=== PATIENT | female | born 1990 | race Caucasian/White ===

== ENCOUNTER 2019-01-02 17:12 | Emergency (ER) | payer OTHER, MEDICAID, SELFPAY ==
[2019-01-02 17:18] VITALS: BP 128/89; PULSE 78; RESP 12; TEMP 36.8; O2SAT 95; BMI 16.9
[2019-01-02 18:07] LABS: Alanine Aminotransferase 15 IU/L (9-52); Albumin 4.4 g/dL (3.5-5.0); Albumin Globulin Ratio 1.6 (1.0-2.8); Alkaline Phosphatase 59 U/L (38-126); Aspartate Aminotransferase 22 IU/L (14-36); BUN Creatinine Ratio 14.3 (6-22); Bilirubin Total 0.2 mg/dL (0.2-1.3); Blood Urea Nitrogen 10 mg/dL (7-17); Calcium 9.5 mg/dL (8.4-10.2); Carbon Dioxide 26 mmol/L (22-32); Chloride 105 mmol/L (98-107); Estimated Glomerular Filt Rate > 60.0 mL/min (>60); Globulin 2.8 g/dL (1.7-4.1); Glucose 95 mg/dL (70-100); HEMOLYSIS < 15 (0-50); Magnesium 2.2 mg/dL (1.6-2.3); Potassium 3.8 mmol/L (3.4-5.1); Sodium 140 mmol/L (137-145); Total Protein 7.2 g/dL (6.3-8.2)
[2019-01-02 18:36] LABS: Thyroid Stimulating Hormone 1.45 uIU/mL (0.47-4.68)
--- NOTE | 2019-01-02 19:12 | ED.ARRPALP ---
HPI - Arrhythmia/Palpitations General Chief Complaint: Arrhythmia/Palpitations Stated Complaint: hearts going fast,sweating,headache,lighthead Time Seen by Provider: 01/02/19 18:16 Source: patient Mode of arrival: ambulatory Limitations: no limitations History of Present Illness HPI narrative: The patient has been experiencing palpitations since yesterday. She was having a pounding sensation in her chest. There was no associated weakness or dizziness. Symptoms persisted up to the time arrival today. After triage, while resting in her exam room, symptoms improved. She has a prior history of cardiac evaluation, she is unaware of a specific diagnosis. The prior evaluation resolved around similar symptoms. She does not recognize multiple arrhythmias. When seen previously she was advised to reduce her caffeine. She has significantly reduced her caffeine. She recently quit smoking but still vapes. She has no chronic medical problems. She is taking no cardiac associated medications. There is no family history of early cardiac disease. Related Data Home Medications Medication Instructions Recorded Confirmed buprenorphine-naloxone 1.5 film SUBLINGUAL DAILY 01/02/19 01/02/19 escitalopram oxalate 10 mg PO QPM 01/02/19 01/02/19 Allergies Allergy/AdvReac Type Severity Reaction Status Date / Time No Known Drug Allergies Allergy Verified 01/02/19 17:22 Review of Systems Review of Systems ROS Unobtainable: All systems reviewed & are unremarkable except as noted in HPI and below Constitutional Denies fever(s), Denies lethargy and Denies weakness Comments: No recent illness ENT Ears, Nose, Mouth, and Throat: Denies nasal congestion, Denies neck pain and Denies sore throat Cardiovascular Reports as per HPI, Denies diaphoresis, Denies syncope, Denies pedal edema and Denies dyspnea Respiratory Denies chest congestion, Denies cough and Denies dyspnea Gastrointestinal Gastrointestinal: Denies abdominal pain, Denies change in bowel habits, Denies diarrhea, Denies nausea and Denies vomiting Musculoskeletal Denies back pain and Denies neck pain Neurologic Denies syncope and Denies weakness [facility] Medical History (Updated 01/03/19 @ 01:31 by Inderjit Conner MD) Palpitation (Acute) Surgical History History of third molar tooth extraction History of third molar tooth extraction Social History Smoking Status: Current every day smoker Social History Smoking Status: Current every day smoker Exam Initial Vital Signs Initial Vital Signs: Vital Signs Temperature 98.2 F 01/02/19 17:18 Pulse Rate 78 01/02/19 17:18 Respiratory Rate 12 01/02/19 17:18 Blood Pressure 128/89 01/02/19 17:18 Pulse Oximetry 95 01/02/19 17:18 Const General: cooperative and well developed Nutritional Appearance: well nourished Orientation: alert, awake, oriented x3 and not confused HENMD Head: normal to inspection and normocephalic Mouth: oral mucosae normal Throat: posterior oropharynx normal Eyes General: appearance normal, both eyes and all related structures Eyelids: eyelids normal Conjunctivae: conjunctivae normal Sclera: sclerae normal Pupils: PERRL EOM: EOM intact bilaterally Neck Neck: normal visual inspection, trachea midline, No lymphadenopathy, No midline deformity and No JVD Lymphatic: No lymphedema Chest Chest: normal inspection of the chest Resp Effort & Inspection: normal respiratory effort, able to speak in complete sentences, no respiratory distress and no use of accessory muscles Auscultation: clear to auscultation bilaterally, no rales, no rhonchi and no wheezes Cardio Rate: regular rate Rhythm: regular rhythm Heart Sounds: no click, no gallops, no murmurs and no rubs Pulses: normal peripheral pulses GI Inspection: non-distended Palpation: soft, no hepatosplenomegaly, No guarding, No pulsatile mass and No tender Auscultation: normal bowel sounds Skin General: no rashes or lesions noted, No jaundice and No petechiae Neuro General: alert, oriented x3, gait normal and no focal motor deficits Speech: speech normal Extrem General: full ROM, no clubbing, cyanosis or edema, no pedal edema and no calf tenderness Course Course Narrative: The patient has been asymptomatic since shortly after arrival. EKG was suggestive junctional rhythm, a repeat shows normal sinus rhythm. Monitor showed normal sinus rhythm. She was referred back to cardiology for additional evaluation. Orders Ordered: ED Orders 01/02/19 17:21 EKG-12 Lead Stat 01/02/19 17:35 Complete Blood Count AUTO DIFF Stat Comprehensive Metabolic Panel Stat Magnesium Stat Prothrombin Time INR Stat TSH [Thyroid Stimulating Hormone] Stat Troponin & CK Cardiac Panel Stat 01/02/19 19:27 EKG-12 Lead Stat Discontinued Medications Aspirin (Aspirin Chew) 324 mg PO NOW ONE Stop: 01/02/19 19:28 Last Admin: 01/02/19 19:51 Dose: 324 mg Vital Signs - 8 hr 01/02/19 20:09 01/02/19 21:00 Pulse Rate 66 62 Respiratory Rate 19 14 Blood Pressure [Left Arm] 104/77 121/76 Pulse Oximetry 100 98 MDM - Arrhythmia/Palpitations Lab Data Result diagrams: 01/02/19 17:35 01/02/19 17:35 Lab Results 01/02/19 01/02/19 01/02/19 Range/Units 17:35 17:35 17:35 WBC 8.2 (4.5-11.0) X10^3/uL RBC 4.11 (4.0-5.2) X10^6/uL Hgb 12.9 (12.0-16.0) g/dL Hct 39.0 (36-46) % MCV 94.7 (80-100) fL MCH 31.5 (26-34) PG MCHC 33.2 (30-36) % RDW 12.5 (11.6-14.8) % Plt Count 275 (150-400) X10^3/uL Neut % (Auto) 58.0 (50-75) % Lymph % (Auto) 35.6 (25-40) % Avery % (Auto) 5.0 (3-14) % Eos % (Auto) 1.0 L (2-4) % Baso % (Auto) 0.4 (0-2) % Neut # (Auto) 4700 (7542-3062) /uL Lymph # (Auto) 2900 (9816-0921) /uL Avery # (Auto) 400 (0-900) /uL Eos # (Auto) 100 (0-450) /uL Baso # (Auto) 0 (0-100) /uL PT (10.1-12.7) SECONDS INR (0.9-1.3) Sodium 140 (137-145) mmol/L Potassium 3.8 (3.4-5.1) mmol/L Chloride 105 (98-107) mmol/L Carbon Dioxide 26 (22-32) mmol/L BUN 10 (7-17) mg/dL Creatinine 0.70 (0.52-1.04) mg/dL Estimated GFR > 60.0 (>60) mL/min BUN/Creatinine Ratio 14.3 (6-22) Glucose 95 (70-100) mg/dL Calcium 9.5 (8.4-10.2) mg/dL Magnesium 2.2 (1.6-2.3) mg/dL Total Bilirubin 0.2 (0.2-1.3) mg/dL AST 22 (14-36) IU/L ALT 15 (9-52) IU/L Alkaline Phosphatase 59 (38-126) U/L Total Creatine Kinase (30-135) U/L CK-MB (CK-2) CK-MB (CK-2) Rel Index Troponin I (0.01-0.034) ng/mL Total Protein 7.2 (6.3-8.2) g/dL Albumin 4.4 (3.5-5.0) g/dL Globulin 2.8 (1.7-4.1) g/dL Albumin/Globulin Ratio 1.6 (1.0-2.8) TSH 1.45 (0.47-4.68) uIU/mL 01/02/19 01/02/19 Range/Units 17:35 17:35 WBC (4.5-11.0) X10^3/uL RBC (4.0-5.2) X10^6/uL Hgb (12.0-16.0) g/dL Hct (36-46) % MCV (80-100) fL MCH (26-34) PG MCHC (30-36) % RDW (11.6-14.8) % Plt Count (150-400) X10^3/uL Neut % (Auto) (50-75) % Lymph % (Auto) (25-40) % Avery % (Auto) (3-14) % Eos % (Auto) (2-4) % Baso % (Auto) (0-2) % Neut # (Auto) (9327-1656) /uL Lymph # (Auto) (9149-5610) /uL Avery # (Auto) (0-900) /uL Eos # (Auto) (0-450) /uL Baso # (Auto) (0-100) /uL PT 13.0 H (10.1-12.7) SECONDS INR 1.1 (0.9-1.3) Sodium (137-145) mmol/L Potassium (3.4-5.1) mmol/L Chloride (98-107) mmol/L Carbon Dioxide (22-32) mmol/L BUN (7-17) mg/dL Creatinine (0.52-1.04) mg/dL Estimated GFR (>60) mL/min BUN/Creatinine Ratio (6-22) Glucose (70-100) mg/dL Calcium (8.4-10.2) mg/dL Magnesium (1.6-2.3) mg/dL Total Bilirubin (0.2-1.3) mg/dL AST (14-36) IU/L ALT (9-52) IU/L Alkaline Phosphatase (38-126) U/L Total Creatine Kinase 87 (30-135) U/L CK-MB (CK-2) TNP CK-MB (CK-2) Rel Index TNP Troponin I < 0.012 (0.01-0.034) ng/mL Total Protein (6.3-8.2) g/dL Albumin (3.5-5.0) g/dL Globulin (1.7-4.1) g/dL Albumin/Globulin Ratio (1.0-2.8) TSH (0.47-4.68) uIU/mL ECG Data Attestation: I personally reviewed and interpreted this ECG as follows: (Junctional rhythm rate 71 beats per minute. Possible right ventricular conduction delay. No acute ST T wave changes. EKG 2. Colon normal sinus rhythm a 71 beats per minute. No acute ST T wave changes. No significant change from the 1st EKG. No ectopy.) Discharge Plan Departure Patient Disposition: Home Clinical Impression: Palpitations, Junctional rhythm Discharge Date/Time: 01/02/19 21:17 Interventions: ED Discharge Assessment Last Done: 01/02/19 21:16 Instructions: DI for Palpitations Activity Restrictions/Additional Instructions: Take baby aspirin, 1 daily. Follow-up with Cardiology, I will give you contact information for Dr. Hernandez here in [place]. Return to ER for persistent chest pain or difficulty breathing Prescriptions: No Action escitalopram oxalate 10 mg tablet 10 mg PO QPM RF: 0 buprenorphine-naloxone 8-2 mg film 1.5 film sublingual DAILY RF: 0 Referrals: Larisa Dozier PA-C [Primary Care Provider] - Blair Hernandez MD [Physician] -
--- NOTE | 2019-01-02 19:28 | ED_ITS ---
HPI - Arrhythmia/Palpitations General Chief Complaint: Arrhythmia/Palpitations Stated Complaint: hearts going fast,sweating,headache,lighthead Time Seen by Provider: 01/02/19 18:16 Source: patient Mode of arrival: ambulatory Limitations: no limitations History of Present Illness HPI narrative: The patient has been experiencing palpitations since yesterday. She was having a pounding sensation in her chest. There was no associated weakness or dizziness. Symptoms persisted up to the time arrival today. After triage, while resting in her exam room, symptoms improved. She has a prior history of cardiac evaluation, she is unaware of a specific diagnosis. The prior evaluation resolved around similar symptoms. She does not recognize multiple arrhythmias. When seen previously she was advised to reduce her c affeine. She has significantly reduced her caffeine. She recently quit smoking but still vapes. She has no chronic medical problems. She is taking no cardiac associated medications. There is no family history of early cardiac disease. Related Data Home Medications Medication Instructions Recorded Confirmed buprenorphine-naloxone 1.5 film SUBLINGUAL DAILY 01/02/19 01/02/19 escitalopram oxalate 10 mg PO QPM 01/02/19 01/02/19 Allergies Allergy/AdvReac Type Severity Reaction Status Date / Time No Known Drug Allergies Allergy Verified 01/02/19 17:22 Review of Systems Review of Systems ROS Unobtainable: All systems reviewed & are unremarkable except as noted in HPI and below Constitutional Denies fever(s), Denies lethargy and Denies weakness Comments: No recent illness ENT Ears, Nose, Mouth, and Throat: Denies nasal congestion, Denies neck pain and Denies sore throat Cardiovascular Reports as per HPI, Denies diaphoresis, Denies syncope, Denies pedal edema and Denies dyspnea Respiratory Denies chest congestion, Denies cough and Denies dyspnea Gastrointestinal Gastrointestinal: Denies abdominal pain, Denies change in bowel habits, Denies diarrhea, Denies nausea and Denies vomiting Musculoskeletal Denies back pain and Denies neck pain Neurologic Denies syncope and Denies weakness [facility] Medical History (Updated 01/03/19 @ 01:31 by Inderjit Conner MD) Palpitation (Acute) Surgical History History of third molar tooth extraction History of third molar tooth extraction Social History Smoking Status: Current every day smoker Social History Smoking Status: Current every day smoker Exam Initial Vital Signs Initial Vital Signs: Vital Signs Temperature 98.2 F 01/02/19 17:18 Pulse Rate 78 01/02/19 17:18 Respiratory Rate 12 01/02/19 17:18 Blood Pressure 128/89 01/02/19 17:18 Pulse Oximetry 95 01/02/19 17:18 Const General: cooperative and well developed Nutritional Appearance: well nourished Orientation: alert, awake, oriented x3 and not confused [facility] Head: normal to inspection and normocephalic Mouth: oral mucosae normal Throat: posterior oropharynx normal Eyes General: appearance normal, both eyes and all related structures Eyelids: eyelids normal Conjunctivae: conjunctivae normal Sclera: sclerae normal Pupils: PERRL EOM: EOM intact bilaterally Neck Neck: normal visual inspection, trachea midline, No lymphadenopathy, No midline deformity and No JVD Lymphatic: No lymphedema Chest Chest: normal inspection of the chest Resp Effort & Inspection: normal respiratory effort, able to speak in complete sentences, no respiratory distress and no use of accessory muscles Auscultation: clear to auscultation bilaterally, no rales, no rhonchi and no wheezes Cardio Rate: regular rate Rhythm: regular rhythm Heart Sounds: no click, no gallops, no murmurs and no rubs Pulses: normal peripheral pulses GI Inspection: non-distended Palpation: soft, no hepatosplenomegaly, No guarding, No pulsatile mass and No tender Auscultation: normal bowel sounds Skin General: no rashes or lesions noted, No jaundice and No petechiae Neuro General: alert, oriented x3, gait normal and no focal motor deficits Speech: speech normal Extrem General: full ROM, no clubbing, cyanosis or edema, no pedal edema and no calf tenderness Course Course Narrative: The patient has been asymptomatic since shortly after arrival. EKG was suggestive junctional rhythm, a repeat shows normal sinus rhythm. Monitor showed normal sinus rhythm. She was referred back to cardiology for a dditional evaluation. Orders Ordered: ED Orders 01/02/19 17:21 EKG-12 Lead Stat 01/02/19 17:35 Complete Blood Count AUTO DIFF Stat Comprehensive Metabolic Panel Stat Magnesium Stat Prothrombin Time INR Stat TSH [Thyroid Stimulating Hormone] Stat Troponin & CK Cardiac Panel Stat 01/02/19 19:27 EKG-12 Lead Stat Discontinued Medications Aspirin (Aspirin Chew) 324 mg PO NOW ONE Stop: 01/02/19 19:28 Last Admin: 01/02/19 19:51 Dose: 324 mg Vital Signs - 8 hr 01/02/19 20:09 01/02/19 21:00 Pulse Rate 66 62 Respiratory Rate 19 14 Blood Pressure [Left Arm] 104/77 121/76 Pulse Oximetry 100 98 MDM - Arrhythmia/Palpitations Lab Data Result diagrams: 01/02/19 17:35 01/02/19 17:35 Lab Results 01/02/19 01/02/19 01/02/19 Range/Units 17:35 17:35 17:35 WBC 8.2 (4.5-11.0) X10^3/uL RBC 4.11 (4.0-5.2) X10^6/uL Hgb 12.9 (12.0-16.0) g/dL Hct 39.0 (36-46) % MCV 94.7 (80-100) fL MCH 31.5 (26-34) PG MCHC 33.2 (30-36) % RDW 12.5 (11.6-14.8) % Plt Count 275 (150-400) X10^3/uL Neut % (Auto) 58.0 (50-75) % Lymph % (Auto) 35.6 (25-40) % Louisa % (Auto) 5.0 (3-14) % Eos % (Auto) 1.0 L (2-4) % Baso % (Auto) 0.4 (0-2) % Neut # (Auto) 4700 (9369-5647) /uL Lymph # (Auto) 2900 (0607-1498) /uL Louisa # (Auto) 400 (0-900) /uL Eos # (Auto) 100 (0-450) /uL Baso # (Auto) 0 (0-100) /uL PT (10.1-12.7) SECONDS INR (0.9-1.3) Sodium 140 (137-145) mmol/L Potassium 3.8 (3.4-5.1) mmol/L Chloride 105 (98-107) mmol/L Carbon Dioxide 26 (22-32) mmol/L BUN 10 (7-17) mg/dL Creatinine 0.70 (0.52-1.04) mg/dL Estimated GFR > 60.0 (>60) mL/min BUN/Creatinine Ratio 14.3 (6-22) Glucose 95 (70-100) mg/dL Calcium 9.5 (8.4-10.2) mg/dL Magnesium 2.2 (1.6-2.3) mg/dL Total Bilirubin 0.2 (0.2-1.3) mg/dL AST 22 (14-36) IU/L ALT 15 (9-52) IU/L Alkaline Phosphatase 59 (38-126) U/L Total Creatine Kinase (30-135) U/L CK-MB (CK-2) CK-MB (CK-2) Rel Index Troponin I (0.01-0.034) ng/mL Total Protein 7.2 (6.3-8.2) g/dL Albumin 4.4 (3.5-5.0) g/dL Globulin 2.8 (1.7-4.1) g/dL Albumin/Globulin Ratio 1.6 (1.0-2.8) TSH 1.45 (0.47-4.68) uIU/mL 01/02/19 01/02/19 Range/Units 17:35 17:35 WBC (4.5-11.0) X10^3/uL RBC (4.0-5.2) X10^6/uL Hgb (12.0-16.0) g/dL Hct (36-46) % MCV (80-100) fL MCH (26-34) PG MCHC (30-36) % RDW (11.6-14.8) % Plt Count (150-400) X10^3/uL Neut % (Auto) (50-75) % Lymph % (Auto) (25-40) % Louisa % (Auto) (3-14) % Eos % (Auto) (2-4) % Baso % (Auto) (0-2) % Neut # (Auto) (0293-5004) /uL Lymph # (Auto) (6651-7356) /uL Louisa # (Auto) (0-900) /uL Eos # (Auto) (0-450) /uL Baso # (Auto) (0-100) /uL PT 13.0 H (10.1-12.7) SECONDS INR 1.1 (0.9-1.3) Sodium (137-145) mmol/L Potassium (3.4-5.1) mmol/L Chloride (98-107) mmol/L Carbon Dioxide (22-32) mmol/L BUN (7-17) mg/dL Creatinine (0.52-1.04) mg/dL Estimated GFR (>60) mL/min BUN/Creatinine Ratio (6-22) Glucose (70-100) mg/dL Calcium (8.4-10.2) mg/dL Magnesium (1.6-2.3) mg/dL Total Bilirubin (0.2-1.3) mg/dL AST (14-36) IU/L ALT (9-52) IU/L Alkaline Phosphatase (38-126) U/L Total Creatine Kinase 87 (30-135) U/L CK-MB (CK-2) TNP CK-MB (CK-2) Rel Index TNP Troponin I < 0.012 (0.01-0.034) ng/mL Total Protein (6.3-8.2) g/dL Albumin (3.5-5.0) g/dL Globulin (1.7-4.1) g/dL Albumin/Globulin Ratio (1.0-2.8) TSH (0.47-4.68) uIU/mL ECG Data Attestation: I personally reviewed and interpreted this ECG as follows: (Junctional rhythm rate 71 beats per minute. Possible right ventricular conduction delay. No acute ST T wave changes. EKG 2. Colon normal sinus rhythm a 71 beats per minute. No acute ST T wave changes. No significant change from the 1st EKG. No ectopy.) Discharge Plan Departure Patient Disposition: Home Clinical Impression: Palpitations, Junctional rhythm Discharge Date/Time: 01/02/19 21:17 Interventions: ED Discharge Assessment Last Done: 01/02/19 21:16 Instructions: DI for Palpitations Activity Restrictions/Additional Instructions: Take baby aspirin, 1 daily. Follow-up with Cardiology, I will give you contact information for Dr. Hernandez here in [place]. Return to ER for persistent chest pain or difficulty breathing Prescriptions: No Action escitalopram oxalate 10 mg tablet 10 mg PO QPM RF: 0 buprenorphine-naloxone 8-2 mg film 1.5 film sublingual DAILY RF: 0 Referrals: Larisa Dozier PA-C [Primary Care Provider] - Blair Hernandez MD [Physician] -
[2019-01-02] MEDS: ASPIRIN 81 MG TAB 324 MG PO (19:51)
[2019-01-02 20:09] VITALS: BP 104/77; PULSE 66; RESP 19; O2SAT 100
[2019-01-02 20:37] LABS: Creatine Kinase 87 U/L (30-135)
[2019-01-02 20:49] LABS: Add Manual Diff / Slide Review NO; Basophils Absolute Auto 0 /uL (0-100); Basophils Percent Auto 0.4 % (0-2); Eosinophils Absolute Auto 100 /uL (0-450); Hemoglobin 12.9 g/dL (12.0-16.0); Lymphocytes Absolute Auto 2900 /uL (1100-4500); Lymphocytes Percent Auto 35.6 % (25-40); Mean Corpuscular HGB Conc 33.2 % (30-36); Mean Corpuscular Hemoglobin 31.5 PG (26-34); Mean Corpuscular Volume 94.7 fL (80-100); Monocytes Absolute Auto 400 /uL (0-900); Neutrophils Absolute Auto 4700 /uL (1500-7000); Platelet Count 275 X10^3/uL (150-400); Red Blood Cell Count 4.11 X10^6/uL (4.0-5.2); Red Cell Distribution Width 12.5 % (11.6-14.8); White Blood Cell Count 8.2 X10^3/uL (4.5-11.0)
[2019-01-02 20:50] LABS: INR 1.1 (0.9-1.3); Troponin I < 0.012 ng/mL (0.01-0.034)
[2019-01-02 21:00] VITALS: BP 121/76; PULSE 62; RESP 14; O2SAT 98
== END 2019-01-02 21:17 | disposition home or self-care (01) ==
PROVIDERS: Internal Medicine; Emergency Provider Emergency Medicine; PCP Physician Assistant
DX: R00.2 Palpitations (principal); I49.8 Other specified cardiac arrhythmias
CPT/HCPCS: 36591; 80053; 82550; 83735; 84443; 84484; 85025; 85610; 93005; 99282; 99284

== ENCOUNTER 2019-01-06 18:17 | Emergency (ER) | payer OTHER, MEDICAID, SELFPAY ==
[2019-01-06 18:18] VITALS: BP 108/65; PULSE 66; RESP 15; O2SAT 99; BMI 16.9
--- NOTE | 2019-01-06 18:30 | DI.RAD.S_ITS ---
PROCEDURE: XR CHEST 1V INDICATIONS: palpitations TECHNIQUE: One view of the chest was acquired. COMPARISON: [facility], , CHEST 2 VIEW, 08/30/2009, 8:11. FINDINGS: Surgical changes and devices: None. Lungs and pleura: Lungs are clear. No pleural effusions or pneumothorax. Mediastinum: Mediastinal contours appear normal. Heart size is normal. Bones and chest wall: No suspicious bony lesions. Overlying soft tissues appear unremarkable. IMPRESSION: No acute process. Dictated by: Bernard Zamora M.D. on 01/06/2019 at 18:44 Approved by: Bernard Zamora M.D. on 01/06/2019 at 18:44
[2019-01-06 18:44] LABS: Add Manual Diff / Slide Review NO; Basophils Absolute Auto 100 /uL (0-100); Basophils Percent Auto 0.8 % (0-2); Eosinophils Absolute Auto 300 /uL (0-450); Eosinophils Percent Auto 3.2 % (2-4); Hematocrit 35.5 % (36-46); Hemoglobin 12.1 g/dL (12.0-16.0); Lymphocytes Absolute Auto 2800 /uL (1100-4500); Lymphocytes Percent Auto 34.9 % (25-40); Mean Corpuscular Hemoglobin 31.9 PG (26-34); Mean Corpuscular Volume 93.9 fL (80-100); Monocytes Absolute Auto 500 /uL (0-900); Monocytes Percent Auto 6.8 % (3-14); Neutrophils Absolute Auto 4300 /uL (1500-7000); Neutrophils Percent Auto 54.3 % (50-75); Platelet Count 228 X10^3/uL (150-400); Red Blood Cell Count 3.78 X10^6/uL (4.0-5.2); Red Cell Distribution Width 12.6 % (11.6-14.8); White Blood Cell Count 7.9 X10^3/uL (4.5-11.0)
[2019-01-06 18:57] LABS: BUN Creatinine Ratio 28.3 (6-22); Blood Urea Nitrogen 17 mg/dL (7-17); Calcium 9.2 mg/dL (8.4-10.2); Carbon Dioxide 27 mmol/L (22-32); Chloride 106 mmol/L (98-107); Creatine Kinase 78 U/L (30-135); Estimated Glomerular Filt Rate > 60.0 mL/min (>60); Glucose 105 mg/dL (70-100); HEMOLYSIS < 15 (0-50); Magnesium 2.1 mg/dL (1.6-2.3); Sodium 140 mmol/L (137-145)
--- NOTE | 2019-01-06 18:57 | ED.ARRPALP ---
HPI - Arrhythmia/Palpitations General Chief Complaint: Arrhythmia/Palpitations Stated Complaint: HEART PALPITATIONS DIZZY Time Seen by Provider: 01/06/19 18:18 Source: patient and family Mode of arrival: ambulatory Limitations: no limitations History of Present Illness HPI narrative: 28-year-old female smoker presents with multiple episodes of palpitations over the past few days. She states occasionally the palpitations are strong enough to cause discomfort but that is not a primary symptom or concern. On occasion she feels dizzy and lightheaded but not currently. She is not currently having palpitations or really any symptoms. She did have a cardiac evaluation which was not complete a few years ago which she wore a monitor but never turned it never head interpreted. She denies any significant dietary or medication change. She denies any significant caffeine, nicotine or alcohol intake. She denies recent travel MD complaint: rapid heart beat, heart racing and palpitations Onset (ago): day(s) Duration: intermittent and now resolved Severity: moderate Context: occurred during rest Associated symptoms: chest pain Related Data Home Medications Medication Instructions Recorded Confirmed buprenorphine-naloxone 1.5 film SUBLINGUAL DAILY 01/02/19 01/06/19 escitalopram oxalate 10 mg PO QPM 01/02/19 01/06/19 Allergies Allergy/AdvReac Type Severity Reaction Status Date / Time No Known Drug Allergies Allergy Verified 01/02/19 17:22 Review of Systems Constitutional Denies chills, Denies fever(s), Denies lethargy and Denies weakness Eyes Denies change in vision, Denies eye discharge, Denies irritation and Denies loss of vision ENT Ears, Nose, Mouth, and Throat: Denies change in voice, Denies neck pain and Denies sore throat Cardiovascular Reports chest pain, Denies irregular heart rhythm, Denies lightheadedness, Reports palpitations, Denies dyspnea, Denies dyspnea on exertion and Denies orthopnea Respiratory Denies cough, Denies dyspnea, Denies dyspnea on exertion and Denies wheezing Gastrointestinal Gastrointestinal: Denies abdominal pain, Denies change in bowel habits, Denies diarrhea, Denies nausea and Denies vomiting Genitourinary Denies hematuria, Denies flank pain, Denies urinary incontinence and Denies urinary urgency Musculoskeletal Denies neck pain Integumentary/Breasts Denies pruritus, Denies erythema, Denies rash and Denies wounds Neurologic Denies confusion, Denies loss of vision and Denies weakness Psychiatric Denies anxiety, Denies confusion, Denies depression, Denies homicidal ideation and Denies suicidal ideation Endocrine Reports palpitations Hematologic/Lymphatic Denies easy bruising Allergic/Immunologic Denies wheezing [facility] Medical History Palpitation (Acute) Surgical History History of third molar tooth extraction History of third molar tooth extraction Social History Smoking Status: Current every day smoker Social History Smoking Status: Current every day smoker Exam Narrative Exam Narrative: GENERAL: 28-year-old female appears stated age, very thin, and anxious HEAD: Atraumatic. Normocephalic. No temporal or scalp tenderness. EYES: Pupils equal round and reactive. Extraocular motions intact. No scleral icterus. No injection or drainage. ENT: Nose without bleeding, purulent drainage or septal hematoma. Throat without erythema, tonsillar hypertrophy or exudate. Uvula midline. Airway patent. NECK: Trachea midline. No JVD or lymphadenopathy. Supple, nontender, no meningeal signs. CARDIOVASCULAR: Regular rate and rhythm without murmurs, gallops, or rubs. RESPIRATORY: Clear to auscultation. Breath sounds equal bilaterally. No wheezes, rales, or rhonchi. GASTROINTESTINAL: Abdomen soft, non-tender, nondistended. No hepato-splenomegaly, or palpable masses. No guarding. EXTREMITIES: No clubbing, cyanosis, or edema. No joint tenderness, effusion, or edema noted. BACK: Nontender without deformity or crepitance. No flank tenderness. NEURO: AOx3. SKIN: No rash or erythema. Initial Vital Signs Initial Vital Signs: Vital Signs Pulse Rate 66 01/06/19 18:18 Respiratory Rate 15 01/06/19 18:18 Blood Pressure 108/65 01/06/19 18:18 Pulse Oximetry 99 01/06/19 18:18 Course Orders Ordered: ED Orders 01/06/19 18:28 EKG-12 Lead Stat 01/06/19 18:30 XR chest 1V Stat 01/06/19 18:38 Basic Metabolic Panel Stat Complete Blood Count AUTO DIFF Stat Ketones (Beta-Hydroxybutyrate) Stat Magnesium Stat Thyroid Stimulating Hormone Stat Troponin & CK Cardiac Panel Stat Discontinued Medications Sodium Chloride (Normal Saline 0.9%) 1,000 mls @ 150 mls/hr IV CONT MAKAYLA Last Admin: 01/06/19 19:12 Dose: 150 mls/hr Vital Signs - 8 hr 01/06/19 18:18 01/06/19 19:00 01/06/19 20:08 Pulse Rate 66 63 62 Respiratory Rate 15 12 16 Blood Pressure 108/65 103/55 L Blood Pressure [Left Arm] 107/67 Pulse Oximetry 99 98 100 MDM - Arrhythmia/Palpitations Differential Diagnosis Differential diagnosis: Likely palpitations Lab Data Result diagrams: 01/06/19 18:38 01/06/19 18:38 Lab Results 01/06/19 01/06/19 01/06/19 Range/Units 18:38 18:38 18:38 WBC 7.9 (4.5-11.0) X10^3/uL RBC 3.78 L (4.0-5.2) X10^6/uL Hgb 12.1 (12.0-16.0) g/dL Hct 35.5 L (36-46) % MCV 93.9 (80-100) fL MCH 31.9 (26-34) PG MCHC 34.0 (30-36) % RDW 12.6 (11.6-14.8) % Plt Count 228 (150-400) X10^3/uL Neut % (Auto) 54.3 (50-75) % Lymph % (Auto) 34.9 (25-40) % [place] % (Auto) 6.8 (3-14) % Eos % (Auto) 3.2 (2-4) % Baso % (Auto) 0.8 (0-2) % Neut # (Auto) 4300 (4651-6329) /uL Lymph # (Auto) 2800 (7036-2444) /uL [place] # (Auto) 500 (0-900) /uL Eos # (Auto) 300 (0-450) /uL Baso # (Auto) 100 (0-100) /uL Sodium 140 (137-145) mmol/L Potassium 4.0 (3.4-5.1) mmol/L Chloride 106 (98-107) mmol/L Carbon Dioxide 27 (22-32) mmol/L BUN 17 (7-17) mg/dL Creatinine 0.60 (0.52-1.04) mg/dL Estimated GFR > 60.0 (>60) mL/min BUN/Creatinine Ratio 28.3 H (6-22) Glucose 105 H (70-100) mg/dL Calcium 9.2 (8.4-10.2) mg/dL Magnesium 2.1 (1.6-2.3) mg/dL Total Creatine Kinase 78 (30-135) U/L CK-MB (CK-2) TNP CK-MB (CK-2) Rel Index TNP Troponin I < 0.012 (0.01-0.034) ng/mL TSH (0.47-4.68) uIU/mL Ketones 0.13 (<0.27) mmol/L 01/06/19 Range/Units 18:38 WBC (4.5-11.0) X10^3/uL RBC (4.0-5.2) X10^6/uL Hgb (12.0-16.0) g/dL Hct (36-46) % MCV (80-100) fL MCH (26-34) PG MCHC (30-36) % RDW (11.6-14.8) % Plt Count (150-400) X10^3/uL Neut % (Auto) (50-75) % Lymph % (Auto) (25-40) % [place] % (Auto) (3-14) % Eos % (Auto) (2-4) % Baso % (Auto) (0-2) % Neut # (Auto) (1821-1112) /uL Lymph # (Auto) (4521-0250) /uL [place] # (Auto) (0-900) /uL Eos # (Auto) (0-450) /uL Baso # (Auto) (0-100) /uL Sodium (137-145) mmol/L Potassium (3.4-5.1) mmol/L Chloride (98-107) mmol/L Carbon Dioxide (22-32) mmol/L BUN (7-17) mg/dL Creatinine (0.52-1.04) mg/dL Estimated GFR (>60) mL/min BUN/Creatinine Ratio (6-22) Glucose (70-100) mg/dL Calcium (8.4-10.2) mg/dL Magnesium (1.6-2.3) mg/dL Total Creatine Kinase (30-135) U/L CK-MB (CK-2) CK-MB (CK-2) Rel Index Troponin I (0.01-0.034) ng/mL TSH 1.33 (0.47-4.68) uIU/mL Ketones (<0.27) mmol/L ECG Data Attestation: I personally reviewed and interpreted this ECG as follows: Prior ECG tracings: available for review Interpretation: junctional rate of 61, no ST elevations or depressions. SC 192, QRS 75 Discharge Plan Departure Patient Disposition: Home Clinical Impression: Palpitations, Junctional rhythm Discharge Date/Time: 01/06/19 20:09 Interventions: ED Discharge Assessment Last Done: 01/06/19 20:08 Instructions: DI for Arrhythmias Activity Restrictions/Additional Instructions: *You have been diagnosed with [ palpitations ] *What to do: *continue to take your medications as directed *Follow up with your primary care provider in 2-3 days, call for an appointment. Let them know you were seen in the Emergency Department and that we ask that you be seen in follow up. Furthermore, it would certainly be reasonable to consider scheduling an appointment with [facility]. Contact info is below. *Return to ER if you should have any new, worsening or concerning symptoms *Consider focusing on drinking plenty of fluids and eating smaller, more frequent meals. Be sure to get 7-8 hours of sleep nightly. Avoid significant amounts of caffeine, nicotine, alcohol, and other stimulants Prescriptions: No Action escitalopram oxalate 10 mg tablet 10 mg PO QPM RF: 0 buprenorphine-naloxone 8-2 mg film 1.5 film sublingual DAILY RF: 0 Referrals: Diego Duran MD [Physician] - Larisa Dozier PA-C [Primary Care Provider] -
[2019-01-06 19:00] VITALS: BP 107/67; PULSE 63; RESP 12; O2SAT 98
[2019-01-06 19:02] LABS: Ketones (Beta-Hydroxybutyrate) 0.13 mmol/L (<0.27)
[2019-01-06 19:09] LABS: Troponin I < 0.012 ng/mL (0.01-0.034)
[2019-01-06] MEDS: SODIUM CHLORIDE 0.9% 1,000 ML 150 ML IV (19:12)
[2019-01-06 19:48] LABS: Thyroid Stimulating Hormone 1.33 uIU/mL (0.47-4.68)
--- NOTE | 2019-01-06 19:54 | ED_ITS ---
HPI - Arrhythmia/Palpitations General Chief Complaint: Arrhythmia/Palpitations Stated Complaint: HEART PALPITATIONS DIZZY Time Seen by Provider: 01/06/19 18:18 Source: patient and family Mode of arrival: ambulatory Limitations: no limitations History of Present Illness HPI narrative: 28-year-old female smoker presents with multiple episodes of palpitations over the past few days. She states occasionally the palpitations are strong enough to cause discomfort but that is not a primary symptom or concern. On occasion she feels dizzy and lightheaded but not currently. She is not currently having palpitations or really any symptoms. She did have a cardiac evaluation which was not complete a few years ago which she wore a monitor but never turned it never head interpreted. She denies any significant dietary or medication change. She denies any significant caffeine, nicotine or alcohol intake. She denies recent travel MD complaint: rapid heart beat, heart racing and palpitations Onset (ago): day(s) Duration: intermittent and now resolved Severity: moderate Context: occurred during rest Associated symptoms: chest pain Related Data Home Medications Medication Instructions Recorded Confirmed buprenorphine-naloxone 1.5 film SUBLINGUAL DAILY 01/02/19 01/06/19 escitalopram oxalate 10 mg PO QPM 01/02/19 01/06/19 Allergies Allergy/AdvReac Type Severity Reaction Status Date / Time No Known Drug Allergies Allergy Verified 01/02/19 17:22 Review of Systems Constitutional Denies chills, Denies fever(s), Denies lethargy and Denies weakness Eyes Denies change in vision, Denies eye discharge, Denies irritation and Denies loss of vision ENT Ears, Nose, Mouth, and Throat: Denies change in voice, Denies neck pain and Denies sore throat Cardiovascular Reports chest pain, Denies irregular heart rhythm, Denies lightheadedness, Reports palpitations, Denies dyspnea, Denies dyspnea on exertion and Denies orthopnea Respiratory Denies cough, Denies dyspnea, Denies dyspnea on exertion and Denies wheezing Gastrointestinal Gastrointestinal: Denies abdominal pain, Denies change in bowel habits, Denies diarrhea, Denies nausea and Denies vomiting Genitourinary Denies hematuria, Denies flank pain, Denies urinary incontinence and Denies urinary urgency Musculoskeletal Denies neck pain Integumentary/Breasts Denies pruritus, Denies erythema, Denies rash and Denies wounds Neurologic Denies confusion, Denies loss of vision and Denies weakness Psychiatric Denies anxiety, Denies confusion, Denies depression, Denies homicidal ideation and Denies suicidal ideation Endocrine Reports palpitations Hematologic/Lymphatic Denies easy bruising Allergic/Immunologic Denies wheezing [facility] Medical History Palpitation (Acute) Surgical History History of third molar tooth extraction History of third molar tooth extraction Social History Smoking Status: Current every day smoker Social History Smoking Status: Current every day smoker Exam Narrative Exam Narrative: GENERAL: 28-year-old female appears stated age, very thin, and anxious HEAD: Atraumatic. Normocephalic. No temporal or scalp tenderness. EYES: Pupils equal round and reactive. Extraocular motions intact. No scleral icterus. No injection or drainage. ENT: Nose without bleeding, purulent drainage or septal hematoma. Throat without erythema, tonsillar hypertrophy or exudate. Uvula midline. Airway patent. NECK: Trachea midline. No JVD or lymphadenopathy. Supple, nontender, no meningeal signs. CARDIOVASCULAR: Regular rate and rhythm without murmurs, gallops, or rubs. RESPIRATORY: Clear to auscultation. Breath sounds equal bilaterally. No wheezes, rales, or rhonchi. GASTROINTESTINAL: Abdomen soft, non-tender, nondistended. No hepato- splenomegaly, or palpable masses. No guarding. EXTREMITIES: No clubbing, cyanosis, or edema. No joint tenderness, effusion, or edema noted. BACK: Nontender without deformity or crepitance. No flank tenderness. NEURO: AOx3. SKIN: No rash or erythema. Initial Vital Signs Initial Vital Signs: Vital Signs Pulse Rate 66 01/06/19 18:18 Respiratory Rate 15 01/06/19 18:18 Blood Pressure 108/65 01/06/19 18:18 Pulse Oximetry 99 01/06/19 18:18 Course Orders Ordered: ED Orders 01/06/19 18:28 EKG-12 Lead Stat 01/06/19 18:30 XR chest 1V Stat 01/06/19 18:38 Basic Metabolic Panel Stat Complete Blood Count AUTO DIFF Stat Ketones (Beta-Hydroxybutyrate) Stat Magnesium Stat Thyroid Stimulating Hormone Stat Troponin & CK Cardiac Panel Stat Discontinued Medications Sodium Chloride (Normal Saline 0.9%) 1,000 mls @ 150 mls/hr IV CONT MAKAYLA Last Admin: 01/06/19 19:12 Dose: 150 mls/hr Vital Signs - 8 hr 01/06/19 18:18 01/06/19 19:00 01/06/19 20:08 Pulse Rate 66 63 62 Respiratory Rate 15 12 16 Blood Pressure 108/65 103/55 L Blood Pressure [Left Arm] 107/67 Pulse Oximetry 99 98 100 MDM - Arrhythmia/Palpitations Differential Diagnosis Differential diagnosis: Likely palpitations Lab Data Result diagrams: 01/06/19 18:38 01/06/19 18:38 Lab Results 01/06/19 01/06/19 01/06/19 Range/Units 18:38 18:38 18:38 WBC 7.9 (4.5-11.0) X10^3/uL RBC 3.78 L (4.0-5.2) X10^6/uL Hgb 12.1 (12.0-16.0) g/dL Hct 35.5 L (36-46) % MCV 93.9 (80-100) fL MCH 31.9 (26-34) PG MCHC 34.0 (30-36) % RDW 12.6 (11.6-14.8) % Plt Count 228 (150-400) X10^3/uL Neut % (Auto) 54.3 (50-75) % Lymph % (Auto) 34.9 (25-40) % [place] % (Auto) 6.8 (3-14) % Eos % (Auto) 3.2 (2-4) % Baso % (Auto) 0.8 (0-2) % Neut # (Auto) 4300 (7259-6977) /uL Lymph # (Auto) 2800 (2506-1017) /uL [place] # (Auto) 500 (0-900) /uL Eos # (Auto) 300 (0-450) /uL Baso # (Auto) 100 (0-100) /uL Sodium 140 (137-145) mmol/L Potassium 4.0 (3.4-5.1) mmol/L Chloride 106 (98-107) mmol/L Carbon Dioxide 27 (22-32) mmol/L BUN 17 (7-17) mg/dL Creatinine 0.60 (0.52-1.04) mg/dL Estimated GFR > 60.0 (>60) mL/min BUN/Creatinine Ratio 28.3 H (6-22) Glucose 105 H (70-100) mg/dL Calcium 9.2 (8.4-10.2) mg/dL Magnesium 2.1 (1.6-2.3) mg/dL Total Creatine Kinase 78 (30-135) U/L CK-MB (CK-2) TNP CK-MB (CK-2) Rel Index TNP Troponin I < 0.012 (0.01-0.034) ng/mL TSH (0.47-4.68) uIU/mL Ketones 0.13 (<0.27) mmol/L 01/06/19 Range/Units 18:38 WBC (4.5-11.0) X10^3/uL RBC (4.0-5.2) X10^6/uL Hgb (12.0-16.0) g/dL Hct (36-46) % MCV (80-100) fL MCH (26-34) PG MCHC (30-36) % RDW (11.6-14.8) % Plt Count (150-400) X10^3/uL Neut % (Auto) (50-75) % Lymph % (Auto) (25-40) % [place] % (Auto) (3-14) % Eos % (Auto) (2-4) % Baso % (Auto) (0-2) % Neut # (Auto) (8061-9706) /uL Lymph # (Auto) (7328-5271) /uL [place] # (Auto) (0-900) /uL Eos # (Auto) (0-450) /uL Baso # (Auto) (0-100) /uL Sodium (137-145) mmol/L Potassium (3.4-5.1) mmol/L Chloride (98-107) mmol/L Carbon Dioxide (22-32) mmol/L BUN (7-17) mg/dL Creatinine (0.52-1.04) mg/dL Estimated GFR (>60) mL/min BUN/Creatinine Ratio (6-22) Glucose (70-100) mg/dL Calcium (8.4-10.2) mg/dL Magnesium (1.6-2.3) mg/dL Total Creatine Kinase (30-135) U/L CK-MB (CK-2) CK-MB (CK-2) Rel Index Troponin I (0.01-0.034) ng/mL TSH 1.33 (0.47-4.68) uIU/mL Ketones (<0.27) mmol/L ECG Data Attestation: I personally reviewed and interpreted this ECG as follows: Prior ECG tracings: available for review Interpretation: junctional rate of 61, no ST elevations or depressions. [place] 192, QRS 75 Discharge Plan Departure Patient Disposition: Home Clinical Impression: Palpitations, Junctional rhythm Discharge Date/Time: 01/06/19 20:09 Interventions: ED Discharge Assessment Last Done: 01/06/19 20:08 Instructions: DI for Arrhythmias Activity Restrictions/Additional Instructions: *You have been diagnosed with [ palpitations ] *What to do: *continue to take your medications as directed *Follow up with your primary care provider in 2-3 days, call for an appointment. Let them know you were seen in the Emergency Department and that we ask that you be seen in follow up. Furthermore, it would certainly be reasonable to consider scheduling an appointment with [facility]. Contact info is below. *Return to ER if you should have any new, worsening or concerning symptoms *Consider focusing on drinking plenty of fluids and eating smaller, more frequent meals. Be sure to get 7-8 hours of sleep nightly. Avoid significant a eris of caffeine, nicotine, alcohol, and other stimulants Prescriptions: No Action escitalopram oxalate 10 mg tablet 10 mg PO QPM RF: 0 buprenorphine-naloxone 8-2 mg film 1.5 film sublingual DAILY RF: 0 Referrals: Diego Duran MD [Physician] - Larisa Dozier PA-C [Primary Care Provider] -
[2019-01-06 20:08] VITALS: BP 103/55; PULSE 62; RESP 16; O2SAT 100
== END 2019-01-06 20:09 | disposition home or self-care (01) ==
PROVIDERS: Emergency Provider Emergency Medicine; PCP Physician Assistant
DX: I49.8 Other specified cardiac arrhythmias (principal)
CPT/HCPCS: 36591; 71045; 80048; 82009; 82550; 83735; 84443; 84484; 85025; 93005; 93010; 96360; 99283; 99285

== ENCOUNTER 2019-07-06 20:29 | Emergency (ER) | payer OTHER, MEDICAID, SELFPAY ==
[2019-07-06 20:31] VITALS: BP 132/82; PULSE 98; RESP 18; TEMP 36.7; O2SAT 98; BMI 12.9
[2019-07-06 21:00] VITALS: BP 127/88; PULSE 80; O2SAT 100
[2019-07-06 21:00] LABS: UR Morphine/Opiate cutoff 300 Negative (Negative); Ur Creatinine Normal (Normal); Ur Specific Gravity Normal (Normal); Urine Amphetamines Negative (Negative); Urine Barbiturates Negative (Negative); Urine Benzodiazepines Negative (Negative); Urine Cocaine Negative (Negative); Urine MDMA Negative (Negative); Urine Methadone Negative (Negative); Urine Methamphetamines Negative (Negative); Urine Oxycodone Negative (Negative); Urine Phencyclidine Negative (Negative); Urine Tetrahydrocannabinol Positive (Negative); Urine Tricyclic Antidepressant Negative (Negative); Urine pH Normal (Normal)
[2019-07-06 21:09] LABS: Bacteria Urine Few (2-10); Culture Indicated Urine Cult Not Indicated; RBC Urine 0-1/HPF (0-5/HPF); Squamous Epithelial Cell Urine 10-30 /HPF (0-5/HPF); WBC Urine 0-1/HPF (0-5/HPF)
--- NOTE | 2019-07-06 21:29 | ED_ITS ---
HPI - Altered Mental Status General Chief Complaint: Altered Mental Status Stated Complaint: HIT HEAD Time Seen by Provider: 07/06/19 20:46 Source: patient Mode of arrival: Ambulatory Limitations: no limitations History of Present Illness HPI narrative: Patient is a 29-year-old female here with her boyfriend for evaluation of confusion and altered mental status. Patient's boyfriend states that approximately 10 days ago the patient sustained a head injury. The patient does state that about that time she was in her bathroom when she slipped on the floor and did hit her head on the bathtub. Patient does not think that she lost any consciousness. Since that time the patient's boyfriend states that she has been acting different. He states that she has been repeating some questions. He states that she seems to be ?disconnected ?with others around her. When I asked the patient about these questions she does not provide any specific information. She shrugs her shoulders when asked several of these questions whether not she agrees with them. She does seem to smile and laugh at inappropriate times. She does seem to be somewhat confused about the incident 10 days ago and the past 10 days. It is fairly difficult to obtain a direct history from the patient. Related Data Home Medications Medication Instructions Recorded Confirmed buprenorphine-naloxone 1.5 film SUBLINGUAL DAILY 01/02/19 01/06/19 escitalopram oxalate 10 mg PO QPM 01/02/19 01/06/19 Allergies Allergy/AdvReac Type Severity Reaction Status Date / Time No Known Drug Allergies Allergy Verified 01/02/19 17:22 Review of Systems Constitutional Constitutional: Reports headache(s) Eyes Eyes: Denies change in vision ENT Ears, Nose, Mouth, and Throat: Reports headache(s) and Denies disequilibrium Cardiovascular Cardiovascular: Denies chest pain and Denies dyspnea Respiratory Respiratory: Denies dyspnea Gastrointestinal Gastrointestinal: Denies abdominal pain and Denies vomiting Musculoskeletal Musculoskeletal: Denies myalgias and Denies arthralgias Integumentary/Breasts Skin/Breast: Denies rash Neurologic Neurologic: Reports behavioral changes, Reports confusion, Reports headache(s) and Denies disequilibrium Psychiatric Psychiatric: Reports behavioral changes and Reports confusion Hematologic/Lymphatic Hematologic/Lymphatic: Denies easy bleeding and Denies easy bruising Allergic/Immunologic Allergic/Immunologic: Denies urticaria Patient History Medical History Palpitation (Acute) Social History Smoking Status: Current every day smoker Smoking Status: Current every day smoker tobacco type: vaping alcohol intake frequency: 0-2 drinks per day Substance Use Type: marijuana Exam Initial Vital Signs Initial Vital Signs: Vital Signs Temperature 98.1 F 07/06/19 20:31 Pulse Rate 98 H 07/06/19 20:31 Respiratory Rate 18 07/06/19 20:31 Blood Pressure 132/82 07/06/19 20:31 Pulse Oximetry 98 07/06/19 20:31 Const General: cooperative, comfortable, well developed and well groomed Orientation: alert, awake and confused HENMT Head: normal to inspection and normocephalic Ears: TM's normal bilaterally Eyes Pupils: PERRL Resp Effort & Inspection: normal respiratory effort Auscultation: clear to auscultation bilaterally Cardio Rate: regular rate Rhythm: regular rhythm GI Inspection: non-distended Palpation: soft Skin Lesions: no lesions Rashes: no rashes Neuro General: alert and awake Cranial Nerves: CN's II-XI intact bilaterally Cognition: abnormal cognition Speech: speech normal Motor: muscle tone normal throughout Sensory Exam: no sensory deficits noted Extrem General: normal to inspection and capillary refill normal Psych Appearance: grossly normal and well kempt Course Orders Ordered: ED Orders 07/06/19 20:42 Urine Drug Screen, Rapid Stat Urine Microscopic Stat 07/06/19 21:30 CT head/brain wo con Stat Vital Signs Vital signs: Vital Signs - 8 hr 07/06/19 20:31 07/06/19 21:00 Temperature 98.1 F Pulse Rate 98 H 80 Respiratory Rate 18 Blood Pressure 132/82 Blood Pressure [Left Arm] 127/88 Pulse Oximetry 98 100 MDM - Altered Mental Status Lab Data Attestation: I reviewed the patient's lab results. Labs: Lab Results 07/06/19 07/06/19 Range/Units 20:42 20:42 Urine RBC 0-1/hpf (0-5/HPF) Urine WBC 0-1/hpf (0-5/HPF) Ur Squamous Epith Cells 10-30 /hpf H (0-5/HPF) Urine Bacteria Few (2-10) H (None) Ur Culture Indicated? Cult not indicated U Morph 300 ng/mL cutoff Negative (Negative) Ur Oxycodone Screen Negative (Negative) Urine Methadone Screen Negative (Negative) Ur Barbiturates Screen Negative (Negative) U Tricyclic Antidepress Negative (Negative) Ur Phencyclidine Scrn Negative (Negative) Ur Amphetamines Screen Negative (Negative) U Methamphetamines Scrn Negative (Negative) Ur MDMA Scrn (Ecstasy) Negative (Negative) U Benzodiazepines Scrn Negative (Negative) Urine Cocaine Screen Negative (Negative) U Marijuana (THC) Screen Positive H (Negative) Point of Care Testing Test Results Negative Urine Dip Bedside Urine Glucose Negative Bedside Urine Bilirubin - Negative Bedside Urine Ketone + 15 Urine Specific [place] 1.030 Bedside Urine Occult Blood - Negative Bedside Urine pH 5.5 Bedside Urine Protein + 30 Bedside Urine Urobilinogen - Negative Bedside Urine Nitrite - Negative Bedside Urine Leukocytes - Negative Esterase Imaging Data CT scan - head: Radiologist's Impression: [address] [address] [address] Scan Report Signed Patient: Ronel Smith [facility]#: [id number] : 1990Acct:[id number] Age/Sex: 29 / FDate of Service: 07/06/19 Loc: ED Accession Number: [id number] Procedure: CT head/brain wo con Ordering Provider: [employer] D.O. PROCEDURE: CT HEAD/BRAIN WO CON INDICATIONS: Altered mental status after having had TECHNIQUE: Noncontrast 4.5 mm thick angled axial sections acquired from the foramen magnum to the vertex, with coronal and sagittal reformats. For radiation dose reduction, the following was used: automated exposure control, adjustment of mA and/or kV according to patient size. COMPARISON: None. FINDINGS: Image quality: Excellent. CSF spaces: Basal cisterns are patent. No extra-axial fluid collections. Ventricles are normal in size and shape. Brain: No midline shift. No intracranial masses or hemorrhage. Finn-white matter interface is normal. Skull and face: Calvarium and visualized facial bones are intact, without suspicious lesions. Sinuses: Visualized sinuses and mastoids are clear. IMPRESSION: No acute intracranial disease process. Dictated by: Lindy Gutiérrez MD, PhD on 07/06/2019 at 22:05 Approved by: Lindy Gutiérrez MD, PhD on 07/06/2019 at 22:07 [facility] Narrative Medical decision making narrative: So very difficult to obtain the history from the patient. Much of the history came from the boyfriend who was not around the time the patient hit her head. The patient seems very confused about the situation and is also somewhat confused about the events after the fall. She is able to provide some history. Able to provide some review of systems. Her physical exam is unremarkable except that she does have a very unusual affect. There's no focal neurologic deficits however she does seem to have some problems with potentially memory issues over the past 10 days. Her urine is positive for THC. I feel that given the patient's unusual presentation and the confusion about the exact circumstances of the fall that head CT was warranted. I do feel that the patient was somewhat altered from what I would expect. Head CT was essentially normal. I did discuss with the patient and the boyfriend regarding post concussive syndrome. Informed that the CT scan was not use to diagnose a concussion and now that we knew that she did not have a skull fracture or bleed or any other signs of acute pathology that her symptoms are most likely related to a concussion. We did discuss the symptoms. Informed them that it is important that they make contact with the primary doctor to discuss further workup. They were given a phone number in order to establish this. They're given return precautions and follow-up instructions. He expressed understanding and agreement with plan. Discharge Plan Departure Patient Disposition: Home Clinical Impression: Post concussion syndrome Concussion Qualifiers: Encounter type: sequela Loss of consciousness presence/duration: without LOC Qualified Code(s): S06.0X0S - Concussion without loss of consciousness, sequela Discharge Date/Time: 07/06/19 22:39 Instructions: DI for Postconcussion Syndrome Activity Restrictions/Additional Instructions: Recommend that you contact the health human resources office manager at [phone] to help you establish a primary provider in the area. Return to the emergency department for any new or worsening symptoms Prescriptions: No Action escitalopram oxalate 10 mg tablet 10 mg PO QPM RF: 0 buprenorphine-naloxone 8-2 mg film 1.5 film sublingual DAILY RF: 0
== END 2019-07-06 22:39 | disposition home or self-care (01) ==
PROVIDERS: Nurse Practitioner Family; Emergency Provider Emergency Medicine
DX: F07.81 Postconcussional syndrome (principal); G44.319 Acute post-traumatic headache, not intractable
CPT/HCPCS: 70450; 80305; 81003; 81015; 81025; 99284

== ENCOUNTER 2019-08-04 16:56 | Emergency (ER) | payer OTHER, MEDICAID, SELFPAY ==
[2019-08-04 17:04] VITALS: BP 113/79; PULSE 107; RESP 18; TEMP 36.9; O2SAT 98
--- NOTE | 2019-08-04 17:45 | ED_ITS ---
HPI - Psych <Sakina Steward DO - Last Filed: 08/04/19 21:12> General Chief Complaint: Psychiatric Symptoms Stated Complaint: unable to speak Time Seen by Provider: 08/04/19 17:45 Source: patient, family (mother) and old records reviewed Mode of arrival: Ambulatory Limitations: other (patient answers yes/no. does not eleborate with sentences.) History of Present Illness HPI Narrative: This is a 29-year-old female who's brought to the emergency department for being unable to speak. Patient's mother states that she has noticed increasingly that she will not speak to her. Occasionally she will have uses sentence or 2 but less and less regularly. Patient does history of substance abuse but indicates that she has been clean and her mother states she is not aware of any recent drug abuse. She was on Suboxone but has stopped taking that. She did to used to take Lexapro for anxiety or depression but no longer takes that medication. Patient is adopted but her biological parents it[place] th had schizophrenia. She has never been evaluated or formally diagnosed but mother does have some concerns. Patient denies any auditory or visual hallucinations. She will not speak to me in full sentences but does nod her head yes or no or indicate answers. She does denies suicidal ideation or intent homicidal ideation or intent. Patient has had increasingly on behavior according to her mother. She also today had an episode where she was slapping at her head and acting if there were bugs in her hair or something was freaking her out. Patient spends time divided between her boyfriend's and her parents home. She did have a recent visit at [facility] and was given a dose of Zyprexa there which she found helpful. She was not discharged with any medications in the mother's unsure of what the findings were from that visit. She has a primary care and has an appointment scheduled for the . Related Data Home Medications Medication Instructions Recorded Confirmed No Known Home Medications 08/04/19 08/04/19 Allergies Allergy/AdvReac Type Severity Reaction Status Date / Time No Known Drug Allergies Allergy Verified 08/04/19 17:17 Patient History <Sakina Steward DO - Last Filed: 08/04/19 21:12> Medical History Palpitation (Acute) Surgical History History of third molar tooth extraction History of third molar tooth extraction Social History Smoking Status: Current every day smoker Smoking Status: Current every day smoker tobacco type: vaping alcohol intake frequency: 0-2 drinks per day Substance Use Type: does not use and former substance user Exam <Sakina Steward DO - Last Filed: 08/04/19 21:12> Narrative Exam Narrative: GEN: Thin well-appearing female, alert, patient appears to be in mild distress. Patient is somewhat disheveled with mildly poor hygiene. HEENT: Atraumatic, pupils are equal round reactive to light, no nystagmus, extraocular movements are intact, nares are clear HEART: Regular rate and rhythm without murmur, clicks, rubs. LUNGS:Lungs clear to auscultation, no wheezes, rales, crackles, chest moves symmetrically ABD:bowel sounds normal, soft, non-tender, no guarding, rebound, rigidity, no masses noted, no hepatosplenomegaly :No CVA tenderness MSCL: Non-tender, no muscle atrophy, full range of motion, normal gait NEURO:CN 2-12 intact, sensation normal, reflexes 2/4 upper and lower extremities. SKIN: Patient has acne but also areas that appear similar with skin picking on her face as well as extremities and chest. PSYCH: denies suicidal or homicidal ideation, denies hallucinations, + depression/anxiety history, patient does not talk but nods yes/no to questions and is actively engaged. Flat affect. Initial Vital Signs Initial Vital Signs: Vital Signs Temperature 98.4 F 08/04/19 17:04 Pulse Rate 107 H 08/04/19 17:04 Respiratory Rate 18 08/04/19 17:04 Blood Pressure 113/79 08/04/19 17:04 Pulse Oximetry 98 08/04/19 17:04 <Stefania Zimmer MD - Last Filed: 08/06/19 03:06> Initial Vital Signs Initial Vital Signs: Vital Signs Temperature 98.4 F 08/04/19 17:04 Pulse Rate 107 H 08/04/19 17:04 Respiratory Rate 18 08/04/19 17:04 Blood Pressure 113/79 08/04/19 17:04 Pulse Oximetry 98 08/04/19 17:04 <Chel Blanchard DO - Last Filed: 08/05/19 12:44> Initial Vital Signs Initial Vital Signs: Vital Signs Temperature 98.4 F 08/04/19 17:04 Pulse Rate 107 H 08/04/19 17:04 Respiratory Rate 18 08/04/19 17:04 Blood Pressure 113/79 08/04/19 17:04 Pulse Oximetry 98 08/04/19 17:04 Course <Sakina Steward DO - Last Filed: 08/04/19 21:12> Orders Ordered: Discontinued Medications Olanzapine (Zyprexa Zydis) 10 mg PO NOW ONE Stop: 08/04/19 18:19 Last Admin: 08/04/19 18:22 Dose: 10 mg Documented by: KARLA Vital Signs Vital signs: Vital Signs - 8 hr 08/05/19 08:46 Pulse Rate 75 Respiratory Rate 15 Blood Pressure [Left Arm] 112/80 Pulse Oximetry 97 <Stefania Zimmer MD - Last Filed: 08/06/19 03:06> Orders Ordered: Discontinued Medications Olanzapine (Zyprexa Zydis) 10 mg PO NOW ONE Stop: 08/04/19 18:19 Last Admin: 08/04/19 18:22 Dose: 10 mg Documented by: KARLA Vital Signs Vital signs: Vital Signs - 8 hr 08/05/19 08:46 Pulse Rate 75 Respiratory Rate 15 Blood Pressure [Left Arm] 112/80 Pulse Oximetry 97 <Chel Blanchard DO - Last Filed: 08/05/19 12:44> Orders Ordered: Discontinued Medications Olanzapine (Zyprexa Zydis) 10 mg PO NOW ONE Stop: 08/04/19 18:19 Last Admin: 08/04/19 18:22 Dose: 10 mg Documented by: KARLA Vital Signs Vital signs: Vital Signs - 8 hr 08/05/19 08:46 Pulse Rate 75 Respiratory Rate 15 Blood Pressure [Left Arm] 112/80 Pulse Oximetry 97 MDM - Psych <Sakina Steward DO - Last Filed: 08/04/19 21:12> Lab Data Attestation: I reviewed the patient's lab results. Result diagrams: 08/04/19 17:43 08/04/19 17:43 Labs: Lab Results 08/04/19 08/04/19 08/04/19 Range/Units 17:43 17:43 17:43 WBC 11.0 (4.5-11.0) X10^3/uL RBC 4.45 (4.0-5.2) X10^6/uL Hgb 14.4 (12.0-16.0) g/dL Hct 41.6 (36-46) % MCV 93.5 (80-100) fL MCH 32.3 (26-34) PG MCHC 34.6 (30-36) % RDW 13.0 (11.6-14.8) % Plt Count 264 (150-400) X10^3/uL Neut % (Auto) 67.6 (50-75) % Lymph % (Auto) 21.1 L (25-40) % [place] % (Auto) 10.0 (3-14) % Eos % (Auto) 0.8 L (2-4) % Baso % (Auto) 0.5 (0-2) % Neut # (Auto) 7400 H (8707-3074) /uL Lymph # (Auto) 2300 (9621-0398) /uL [place] # (Auto) 1100 H (0-900) /uL Eos # (Auto) 100 (0-450) /uL Baso # (Auto) 0 (0-100) /uL Sodium 141 (137-145) mmol/L Potassium 3.7 (3.4-5.1) mmol/L Chloride 106 (98-107) mmol/L Carbon Dioxide 28 (22-32) mmol/L BUN 22 H (7-17) mg/dL Creatinine 0.60 (0.52-1.04) mg/dL Estimated GFR > 60.0 (>60) mL/min BUN/Creatinine Ratio 36.7 H (6-22) Glucose 100 (70-100) mg/dL Calcium 9.7 (8.4-10.2) mg/dL Total Bilirubin 0.2 (0.2-1.3) mg/dL AST 26 (14-36) IU/L ALT 26 (<35) IU/L Alkaline Phosphatase 87 (38-126) U/L Total Protein 7.4 (6.3-8.2) g/dL Albumin 4.4 (3.5-5.0) g/dL Globulin 3.0 (1.7-4.1) g/dL Albumin/Globulin Ratio 1.5 (1.0-2.8) TSH 1.33 (0.47-4.68) uIU/mL Free T4 0.87 (0.78-2.19) ng/dL Salicylates < 1.0 (<20) mg/dL U Opiates 300ng/mL cut (Negative) Ur Oxycodone Screen (Negative) Urine Methadone Screen (Negative) Acetaminophen < 10 L (10-30) ug/mL Ur Barbiturates Screen (Negative) U Tricyclic Antidepress (Negative) Ur Phencyclidine Scrn (Negative) Ur Amphetamines Screen (Negative) U Methamphetamines Scrn (Negative) Ur MDMA Scrn (Ecstasy) (Negative) U Benzodiazepines Scrn (Negative) Urine Cocaine Screen (Negative) U Marijuana (THC) Screen (Negative) Ethyl Alcohol < 10 ( - 10) mg/dL 08/04/19 Range/Units 17:50 WBC (4.5-11.0) X10^3/uL RBC (4.0-5.2) X10^6/uL Hgb (12.0-16.0) g/dL Hct (36-46) % MCV (80-100) fL MCH (26-34) PG MCHC (30-36) % RDW (11.6-14.8) % Plt Count (150-400) X10^3/uL Neut % (Auto) (50-75) % Lymph % (Auto) (25-40) % [place] % (Auto) (3-14) % Eos % (Auto) (2-4) % Baso % (Auto) (0-2) % Neut # (Auto) (6677-6320) /uL Lymph # (Auto) (3803-4267) /uL [place] # (Auto) (0-900) /uL Eos # (Auto) (0-450) /uL Baso # (Auto) (0-100) /uL Sodium (137-145) mmol/L Potassium (3.4-5.1) mmol/L Chloride (98-107) mmol/L Carbon Dioxide (22-32) mmol/L BUN (7-17) mg/dL Creatinine (0.52-1.04) mg/dL Estimated GFR (>60) mL/min BUN/Creatinine Ratio (6-22) Glucose (70-100) mg/dL Calcium (8.4-10.2) mg/dL Total Bilirubin (0.2-1.3) mg/dL AST (14-36) IU/L ALT (<35) IU/L Alkaline Phosphatase (38-126) U/L Total Protein (6.3-8.2) g/dL Albumin (3.5-5.0) g/dL Globulin (1.7-4.1) g/dL Albumin/Globulin Ratio (1.0-2.8) TSH (0.47-4.68) uIU/mL Free T4 (0.78-2.19) ng/dL Salicylates (<20) mg/dL U Opiates 300ng/mL cut Positive H (Negative) Ur Oxycodone Screen Negative (Negative) Urine Methadone Screen Negative (Negative) Acetaminophen (10-30) ug/mL Ur Barbiturates Screen Negative (Negative) U Tricyclic Antidepress Negative (Negative) Ur Phencyclidine Scrn Negative (Negative) Ur Amphetamines Screen Negative (Negative) U Methamphetamines Scrn Negative (Negative) Ur MDMA Scrn (Ecstasy) Negative (Negative) U Benzodiazepines Scrn Negative (Negative) Urine Cocaine Screen Negative (Negative) U Marijuana (THC) Screen Negative (Negative) Ethyl Alcohol ( - 10) mg/dL Point of Care Testing Test Results Negative Urine Dip Bedside Urine Glucose Negative Bedside Urine Bilirubin - Negative Bedside Urine Ketone - Negative Urine Specific [place] 1.030 Bedside Urine Occult Blood +/- Bedside Urine pH 6.0 Bedside Urine Protein +/- 15 Bedside Urine Urobilinogen - Negative Bedside Urine Nitrite - Negative Bedside Urine Leukocytes - Negative Esterase MDM Narrative Medical decision making narrative: Patient had Head Ct 07/06/19 with no acute changes. Records from [facility] ER were obtained. Patient was positive for thc at [facility] visit on 07/16/19 and 07/06/19. Today she is positive for opiates but negative for amphetamines. Patient labs do not show any organic causes of her symptoms. 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 Patient and mother and I discussed that this may be related to mental health and she has follow up on the . She is not suicidal or homicidal, she does have odd affect. Given zyprexa here which was helpful during her ER visit at [facility]. Social work is not available until tomorrow am. Discussed with patient and family and willing to offer to stay in the ER overnight to see social work, I do not feel patient is gravely disabled at this time to warrant involuntary pl acement. Discussed with patient, she is not willing to stay overnight to talk to social work but does express willingness to meet with mental health outpatient. ANNY was contacted, she does have an appointment set up for tomorrow at 1pm at [address] [place] [address] in [place] [address] at phone number [phone]. <Stefania Zimmer MD - Last Filed: 08/06/19 03:06> Lab Data Labs: Lab Results 08/04/19 08/04/19 08/04/19 Range/Units 17:43 17:43 17:43 WBC 11.0 (4.5-11.0) X10^3/uL RBC 4.45 (4.0-5.2) X10^6/uL Hgb 14.4 (12.0-16.0) g/dL Hct 41.6 (36-46) % MCV 93.5 (80-100) fL MCH 32.3 (26-34) PG MCHC 34.6 (30-36) % RDW 13.0 (11.6-14.8) % Plt Count 264 (150-400) X10^3/uL Neut % (Auto) 67.6 (50-75) % Lymph % (Auto) 21.1 L (25-40) % [place] % (Auto) 10.0 (3-14) % Eos % (Auto) 0.8 L (2-4) % Baso % (Auto) 0.5 (0-2) % Neut # (Auto) 7400 H (8482-1707) /uL Lymph # (Auto) 2300 (5547-0404) /uL [place] # (Auto) 1100 H (0-900) /uL Eos # (Auto) 100 (0-450) /uL Baso # (Auto) 0 (0-100) /uL Sodium 141 (137-145) mmol/L Potassium 3.7 (3.4-5.1) mmol/L Chloride 106 (98-107) mmol/L Carbon Dioxide 28 (22-32) mmol/L BUN 22 H (7-17) mg/dL Creatinine 0.60 (0.52-1.04) mg/dL Estimated GFR > 60.0 (>60) mL/min BUN/Creatinine Ratio 36.7 H (6-22) Glucose 100 (70-100) mg/dL Calcium 9.7 (8.4-10.2) mg/dL Total Bilirubin 0.2 (0.2-1.3) mg/dL AST 26 (14-36) IU/L ALT 26 (<35) IU/L Alkaline Phosphatase 87 (38-126) U/L Total Protein 7.4 (6.3-8.2) g/dL Albumin 4.4 (3.5-5.0) g/dL Globulin 3.0 (1.7-4.1) g/dL Albumin/Globulin Ratio 1.5 (1.0-2.8) TSH 1.33 (0.47-4.68) uIU/mL Free T4 0.87 (0.78-2.19) ng/dL Salicylates < 1.0 (<20) mg/dL U Opiates 300ng/mL cut (Negative) Ur Oxycodone Screen (Negative) Urine Methadone Screen (Negative) Acetaminophen < 10 L (10-30) ug/mL Ur Barbiturates Screen (Negative) U Tricyclic Antidepress (Negative) Ur Phencyclidine Scrn (Negative) Ur Amphetamines Screen (Negative) U Methamphetamines Scrn (Negative) Ur MDMA Scrn (Ecstasy) (Negative) U Benzodiazepines Scrn (Negative) Urine Cocaine Screen (Negative) U Marijuana (THC) Screen (Negative) Ethyl Alcohol < 10 ( - 10) mg/dL 08/04/19 Range/Units 17:50 WBC (4.5-11.0) X10^3/uL RBC (4.0-5.2) X10^6/uL Hgb (12.0-16.0) g/dL Hct (36-46) % MCV (80-100) fL MCH (26-34) PG MCHC (30-36) % RDW (11.6-14.8) % Plt Count (150-400) X10^3/uL Neut % (Auto) (50-75) % Lymph % (Auto) (25-40) % [place] % (Auto) (3-14) % Eos % (Auto) (2-4) % Baso % (Auto) (0-2) % Neut # (Auto) (5347-2729) /uL Lymph # (Auto) (0034-1640) /uL [place] # (Auto) (0-900) /uL Eos # (Auto) (0-450) /uL Baso # (Auto) (0-100) /uL Sodium (137-145) mmol/L Potassium (3.4-5.1) mmol/L Chloride (98-107) mmol/L Carbon Dioxide (22-32) mmol/L BUN (7-17) mg/dL Creatinine (0.52-1.04) mg/dL Estimated GFR (>60) mL/min BUN/Creatinine Ratio (6-22) Glucose (70-100) mg/dL Calcium (8.4-10.2) mg/dL Total Bilirubin (0.2-1.3) mg/dL AST (14-36) IU/L ALT (<35) IU/L Alkaline Phosphatase (38-126) U/L Total Protein (6.3-8.2) g/dL Albumin (3.5-5.0) g/dL Globulin (1.7-4.1) g/dL Albumin/Globulin Ratio (1.0-2.8) TSH (0.47-4.68) uIU/mL Free T4 (0.78-2.19) ng/dL Salicylates (<20) mg/dL U Opiates 300ng/mL cut Positive H (Negative) Ur Oxycodone Screen Negative (Negative) Urine Methadone Screen Negative (Negative) Acetaminophen (10-30) ug/mL Ur Barbiturates Screen Negative (Negative) U Tricyclic Antidepress Negative (Negative) Ur Phencyclidine Scrn Negative (Negative) Ur Amphetamines Screen Negative (Negative) U Methamphetamines Scrn Negative (Negative) Ur MDMA Scrn (Ecstasy) Negative (Negative) U Benzodiazepines Scrn Negative (Negative) Urine Cocaine Screen Negative (Negative) U Marijuana (THC) Screen Negative (Negative) Ethyl Alcohol ( - 10) mg/dL Point of Care Testing Test Results Negative Urine Dip Bedside Urine Glucose Negative Bedside Urine Bilirubin - Negative Bedside Urine Ketone - Negative Urine Specific [place] 1.030 Bedside Urine Occult Blood +/- Bedside Urine pH 6.0 Bedside Urine Protein +/- 15 Bedside Urine Urobilinogen - Negative Bedside Urine Nitrite - Negative Bedside Urine Leukocytes - Negative Esterase <Chel Blanchard, DO - Last Filed: 08/05/19 12:44> Lab Data Labs: Lab Results 08/04/19 08/04/19 08/04/19 Range/Units 17:43 17:43 17:43 WBC 11.0 (4.5-11.0) X10^3/uL RBC 4.45 (4.0-5.2) X10^6/uL Hgb 14.4 (12.0-16.0) g/dL Hct 41.6 (36-46) % MCV 93.5 (80-100) fL MCH 32.3 (26-34) PG MCHC 34.6 (30-36) % RDW 13.0 (11.6-14.8) % Plt Count 264 (150-400) X10^3/uL Neut % (Auto) 67.6 (50-75) % Lymph % (Auto) 21.1 L (25-40) % [place] % (Auto) 10.0 (3-14) % Eos % (Auto) 0.8 L (2-4) % Baso % (Auto) 0.5 (0-2) % Neut # (Auto) 7400 H (7223-4034) /uL Lymph # (Auto) 2300 (7182-5288) /uL [place] # (Auto) 1100 H (0-900) /uL Eos # (Auto) 100 (0-450) /uL Baso # (Auto) 0 (0-100) /uL Sodium 141 (137-145) mmol/L Potassium 3.7 (3.4-5.1) mmol/L Chloride 106 (98-107) mmol/L Carbon Dioxide 28 (22-32) mmol/L BUN 22 H (7-17) mg/dL Creatinine 0.60 (0.52-1.04) mg/dL Estimated GFR > 60.0 (>60) mL/min BUN/Creatinine Ratio 36.7 H (6-22) Glucose 100 (70-100) mg/dL Calcium 9.7 (8.4-10.2) mg/dL Total Bilirubin 0.2 (0.2-1.3) mg/dL AST 26 (14-36) IU/L ALT 26 (<35) IU/L Alkaline Phosphatase 87 (38-126) U/L Total Protein 7.4 (6.3-8.2) g/dL Albumin 4.4 (3.5-5.0) g/dL Globulin 3.0 (1.7-4.1) g/dL Albumin/Globulin Ratio 1.5 (1.0-2.8) TSH 1.33 (0.47-4.68) uIU/mL Free T4 0.87 (0.78-2.19) ng/dL Salicylates < 1.0 (<20) mg/dL U Opiates 300ng/mL cut (Negative) Ur Oxycodone Screen (Negative) Urine Methadone Screen (Negative) Acetaminophen < 10 L (10-30) ug/mL Ur Barbiturates Screen (Negative) U Tricyclic Antidepress (Negative) Ur Phencyclidine Scrn (Negative) Ur Amphetamines Screen (Negative) U Methamphetamines Scrn (Negative) Ur MDMA Scrn (Ecstasy) (Negative) U Benzodiazepines Scrn (Negative) Urine Cocaine Screen (Negative) U Marijuana (THC) Screen (Negative) Ethyl Alcohol < 10 ( - 10) mg/dL 08/04/19 Range/Units 17:50 WBC (4.5-11.0) X10^3/uL RBC (4.0-5.2) X10^6/uL Hgb (12.0-16.0) g/dL Hct (36-46) % MCV (80-100) fL MCH (26-34) PG MCHC (30-36) % RDW (11.6-14.8) % Plt Count (150-400) X10^3/uL Neut % (Auto) (50-75) % Lymph % (Auto) (25-40) % [place] % (Auto) (3-14) % Eos % (Auto) (2-4) % Baso % (Auto) (0-2) % Neut # (Auto) (3497-0602) /uL Lymph # (Auto) (3451-8121) /uL [place] # (Auto) (0-900) /uL Eos # (Auto) (0-450) /uL Baso # (Auto) (0-100) /uL Sodium (137-145) mmol/L Potassium (3.4-5.1) mmol/L Chloride (98-107) mmol/L Carbon Dioxide (22-32) mmol/L BUN (7-17) mg/dL Creatinine (0.52-1.04) mg/dL Estimated GFR (>60) mL/min BUN/Creatinine Ratio (6-22) Glucose (70-100) mg/dL Calcium (8.4-10.2) mg/dL Total Bilirubin (0.2-1.3) mg/dL AST (14-36) IU/L ALT (<35) IU/L Alkaline Phosphatase (38-126) U/L Total Protein (6.3-8.2) g/dL Albumin (3.5-5.0) g/dL Globulin (1.7-4.1) g/dL Albumin/Globulin Ratio (1.0-2.8) TSH (0.47-4.68) uIU/mL Free T4 (0.78-2.19) ng/dL Salicylates (<20) mg/dL U Opiates 300ng/mL cut Positive H (Negative) Ur Oxycodone Screen Negative (Negative) Urine Methadone Screen Negative (Negative) Acetaminophen (10-30) ug/mL Ur Barbiturates Screen Negative (Negative) U Tricyclic Antidepress Negative (Negative) Ur Phencyclidine Scrn Negative (Negative) Ur Amphetamines Screen Negative (Negative) U Methamphetamines Scrn Negative (Negative) Ur MDMA Scrn (Ecstasy) Negative (Negative) U Benzodiazepines Scrn Negative (Negative) Urine Cocaine Screen Negative (Negative) U Marijuana (THC) Screen Negative (Negative) Ethyl Alcohol ( - 10) mg/dL Point of Care Testing Test Results Negative Urine Dip Bedside Urine Glucose Negative Bedside Urine Bilirubin - Negative Bedside Urine Ketone - Negative Urine Specific [place] 1.030 Bedside Urine Occult Blood +/- Bedside Urine pH 6.0 Bedside Urine Protein +/- 15 Bedside Urine Urobilinogen - Negative Bedside Urine Nitrite - Negative Bedside Urine Leukocytes - Negative Esterase MDM Narrative Medical decision making narrative: The patient is seen and evaluated by myself signed out by Dr. Zimmer. Social Work has been involved in case. Initially tried [facility] however declined from [facility] unfortunately she missed her appointment at the be awake today a new 1 has been set up for her. She shakes her head no in response to suicidal ideation. Mother agrees to take her home Discharge Plan Departure Patient Disposition: Home Clinical Impression: Alteration of behavior in patient 21 years to 64 years of age Discharge Date/Time: 08/05/19 12:44 Instructions: DI for Psychosis Activity Restrictions/Additional Instructions: Follow up at your appointment 08/06/[address] [place] [address] [place] [address]. The phone number is [phone] to contact if needed. I am concerned that your recent changes in behavior are second to mental health issues and that you would benefit from following up. If you are feeling suicidal or having suicidal thoughts: Call: Suicide Hotline: Visit: www.[facility].org Text: 873779 Return to the ER if you are feel your unsafe, if having suicidal thoughts, homicidal thoughts, new hallucinations that are auditory or visual review of any other new or concerning symptoms. You may return at any time. Prescriptions: No Action No Known Home Medications RF: 0
[2019-08-04 17:50] LABS: Add Manual Diff / Slide Review NO; Basophils Absolute Auto 0 /uL (0-100); Basophils Percent Auto 0.5 % (0-2); Eosinophils Absolute Auto 100 /uL (0-450); Eosinophils Percent Auto 0.8 % (2-4); Hematocrit 41.6 % (36-46); Hemoglobin 14.4 g/dL (12.0-16.0); Lymphocytes Absolute Auto 2300 /uL (1100-4500); Lymphocytes Percent Auto 21.1 % (25-40); Mean Corpuscular HGB Conc 34.6 % (30-36); Mean Corpuscular Hemoglobin 32.3 PG (26-34); Mean Corpuscular Volume 93.5 fL (80-100); Monocytes Absolute Auto 1100 /uL (0-900); Neutrophils Absolute Auto 7400 /uL (1500-7000); Neutrophils Percent Auto 67.6 % (50-75); Platelet Count 264 X10^3/uL (150-400); Red Blood Cell Count 4.45 X10^6/uL (4.0-5.2)
[2019-08-04 18:03] LABS: Acetaminophen < 10 ug/mL (10-30); Alanine Aminotransferase 26 IU/L (<35); Albumin 4.4 g/dL (3.5-5.0); Albumin Globulin Ratio 1.5 (1.0-2.8); Alkaline Phosphatase 87 U/L (38-126); Aspartate Aminotransferase 26 IU/L (14-36); BUN Creatinine Ratio 36.7 (6-22); Bilirubin Total 0.2 mg/dL (0.2-1.3); Blood Urea Nitrogen 22 mg/dL (7-17); Calcium 9.7 mg/dL (8.4-10.2); Carbon Dioxide 28 mmol/L (22-32); Chloride 106 mmol/L (98-107); Estimated Glomerular Filt Rate > 60.0 mL/min (>60); Ethanol (ETOH) < 10 mg/dL; Glucose 100 mg/dL (70-100); HEMOLYSIS < 15 (0-50); Potassium 3.7 mmol/L (3.4-5.1); Salicylate < 1.0 mg/dL (<20); Sodium 141 mmol/L (137-145); Total Protein 7.4 g/dL (6.3-8.2)
[2019-08-04 18:09] LABS: UR Morphine/Opiate cutoff 300 Positive (Negative); Ur Creatinine Normal (Normal); Ur Specific Gravity Normal (Normal); Urine Amphetamines Negative (Negative); Urine Barbiturates Negative (Negative); Urine Benzodiazepines Negative (Negative); Urine Cocaine Negative (Negative); Urine MDMA Negative (Negative); Urine Methadone Negative (Negative); Urine Methamphetamines Negative (Negative); Urine Oxycodone Negative (Negative); Urine Phencyclidine Negative (Negative); Urine Tetrahydrocannabinol Negative (Negative); Urine Tricyclic Antidepressant Negative (Negative); Urine pH Normal (Normal)
[2019-08-04] MEDS: OLANZapine ODT 10 MG TAB PO (18:22)
[2019-08-04 18:49] LABS: Free T4, Direct Thyroxine 0.87 ng/dL (0.78-2.19)
[2019-08-04 19:03] LABS: Thyroid Stimulating Hormone 1.33 uIU/mL (0.47-4.68)
[2019-08-04 22:33] VITALS: BP 120/80; PULSE 100; RESP 16; O2SAT 97
--- NOTE | 2019-08-05 02:56 | PC.NURSE ---
0230 pt ambulatory to bathroom denies pain or discomfort, taking po fluids
[2019-08-05 03:00] VITALS: BP 119/70; PULSE 93; RESP 16; O2SAT 99
--- NOTE | 2019-08-05 08:42 | PC.NURSE ---
pt ambulated to restroom on her own, no complaints
[2019-08-05 08:46] VITALS: BP 112/80; PULSE 75; RESP 15; O2SAT 97
--- NOTE | 2019-08-05 12:38 | CM.SWNOTE ---
RIDE ATTENDANT Note: Received return phone call from Radha at [facility] they report that they are unable to accept at this time due to patient's lack of specific concerns for safety and SI. Met again with patient and Mother. Patient denies by shaking her head that she is suicidal. Patient in agreement with shake of the head to go to next day appointment tomorrow at [facility] in [facility] between 8:30-11:00AM. Name, number, and brochure provided to patient/mother. Dr. Blanchard in agreement. P: Home today with next day appointment with [facility]. EVERETTE Terry Discharge Planning/Care Management ED Psychiatric Symptoms Assessment Start: 08/04/19 17:17 Freq: Status: Active Protocol: Document 08/04/19 19:09 ADK (Rec: 08/04/19 19:29 ADK [id number]) Psychiatric Symptoms Assessment Symptoms/Complaint Altered Mental Status Onset weeks Duration Getting Worse History Of Same Yes Context Unknown Improves With Medication Associated Symptoms Insomnia Details of Plan altered, won't speak, pt answering questions appropriately with nod of head or pointing, denies SI/HI /hallucinations/illness/drug use, reports recent episode of same where she was seen at another facility where she was given zyprexa which she said helped her Document 08/05/19 03:10 AP (Rec: 08/05/19 03:11 AP [id number]) Psychiatric Symptoms Assessment Symptoms/Complaint stated she needs help,denies suicidal ora homicidal thoughts,very quiet. Duration Changing Over Time History Of Same Yes Context Unknown Improves With Nothing Worsens With Nothing Associated Psychiatric Symptoms None Associated Symptoms Insomnia RIDE ATTENDANT - Cleaning Associate Assessment Start: 08/05/19 11:34 Freq: Status: Active Protocol: Document 08/05/19 11:34 KJS (Rec: 08/05/19 11:55 KJS [id number]) RIDE ATTENDANT/Cleaning Associate Assessment Start date 08/05/19 Visit Start Time 10:30 Total time Care Management spent on 90 minutes patient visit-in minutes Presenting Problem This is a 29yr old female brought in to the [facility] ED with mental health disturbances. Patient's Mother reports that patient has been increasingly alert but not speaking? Mother/Kim believes that patient is living with undiagnosed mental health issues. Precipitating Event(s) Unclear Current Behavioral Health Provider(s) None/Previously received Include Facility, Provider, Ph. # suboxent at [facility] in [place]. Psych. Hx Mental Health and Chemical None Dependency Psychiatric Hospitalizations (date(s)/ None known of. location) Support System(s) [facility] ph# [phone] School/Work None Presenting Problem RIDE ATTENDANT met with patient and Mother at bedside patient does answer some yes/no questions and also uses her hands to answer. 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 A Current Behavioral Health Provider(s) None Include Facility, Provider, Ph. # Longest Period of Sobriety [facility] Support System(s) Mother/Kim ph# [phone] . Patient resides with Mother in [place]. Legal Matters - Outstanding Issues Unknown Orientation (Person/Place/Time) Alert and oriented x3 Affect Flat Thought Content - Specify/Describe Denies hallucinations Obsessions, Delusions, Hallucinations Thought Processes (Boglmsx-Qiztttvy-Poio Unclear given off/on ability Sjcbyrrn-Aqheeknx-Wlyeemcooo- to speak. Kegnwhkbcpgxmi-Gltsfhk-Baccmmhvzuag- Thought Blocking) Speech (Jysrbg-Dwxp-Vgiitsj-Rapid-Soft- Abnormal speech. No medical Loud-Pressured) reason present. Patient's Mother fearful of what patient might do? Patient cannot clearly deny suicidal ideation . Motor (Ahabkp-Wzukkghdh-Ncuq-Other) Slow Insight (Present-Partially Present- Seems impaired Impaired) Judgement (Intact-Impaired) Impaired Impulse Control (Adequate-Impaired) Unclear Memory (Bjuxerylh-Lqbhhk-Vclfjx, Unclear Impaired-Intact) Concentration (Intact-Impaired) Unclear Attention (Intact-Impaired) Intact Behavior (Appropriate-Inappropriate) Appropriate to RIDE ATTENDANT, family and staff. Suicidal Ideation (Plan) Unable to determine Intervention RIDE ATTENDANT met with patient and Mother/Kim at bedside. It appears that patient currently having difficulty with her speech which Mother associates with her mental health. Mother reports that patient's behavior has worsened over the last several months. Specifically as it relates to her communication and isolation. Mother believes that patient would benefit from Mental Health Evaulatuion consisiting of inpatient placement. Spoke with Dr. Blanchard and she does not nessecarily disagree with patient going for extensive mental health evaluation and medication assistance. Placed call to [facility], spoke with Ronald and faxed clinical for review. RA Plan Patient would benefit from getting established with MH provider and medication assistance [facility]. Difficult to access risk due to patient's limited speech which is most likely due to undiagnosed mental illness.
[2019-08-05 12:42] VITALS: BP 127/84; PULSE 102; RESP 20; TEMP 36.8; O2SAT 99
== END 2019-08-05 12:44 | disposition home or self-care (01) ==
PROVIDERS: Emergency Medicine; Emergency Provider Emergency Medicine
DX: R46.89 Other symptoms and signs involving appearance and behavior (principal)
CPT/HCPCS: 36415; 80053; 80305; 80320; 80329; 81003; 81025; 84439; 84443; 85025; 99284; G0480

== ENCOUNTER 2020-01-31 14:49 | Emergency (ER) | payer OTHER, MEDICAID, SELFPAY ==
[2020-01-31 15:02] VITALS: BP 106/70; PULSE 78; RESP 14; TEMP 36.7; O2SAT 100; BMI 19.3
--- NOTE | 2020-01-31 15:17 | DI.RAD.S_ITS ---
PROCEDURE: XR HAND RT MIN 3V INDICATIONS: punch through window with hand, laceration TECHNIQUE: 3 views of the hand(s) acquired. COMPARISON: None. FINDINGS: Evaluation is limited, secondary to the patient's inability to fully cooperate with the examination. Examination is limited by nonstandard positioning, with fingers overlapping 1 another. Bones: No fractures or dislocations. Carpal bones are normally aligned. No suspicious bony lesions. Soft tissues: No radiopaque foreign bodies are seen. IMPRESSION: Limited study, without fractures or radiopaque foreign bodies observed. Dictated by: Bharat Bolaños M.D. on 01/31/2020 at 14:38 Approved by: Bharat Bolaños M.D. on 01/31/2020 at 14:39
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
[2020-01-31] MEDS: LIDO 1%/SOD BICARB 8.4% (10ML) 10 ML SYRINGE INJ (16:04)
[2020-01-31] MEDS: TET,DIPH,PERTUSS(ACELL),VAC/PF 0.5 ML SYRINGE IM (16:04)
[2020-01-31] MEDS: BACITRACIN OINT 0.9 GM PCKT 1 APPLIC TOP (16:05)
[2020-01-31 16:17] VITALS: PULSE 74; O2SAT 99
[2020-01-31 16:21] LABS: UR Morphine/Opiate cutoff 300 Negative (Negative); Ur Creatinine Normal (Normal); Ur Specific Gravity Normal (Normal); Urine Amphetamines Negative (Negative); Urine Barbiturates Negative (Negative); Urine Benzodiazepines Negative (Negative); Urine Cocaine Negative (Negative); Urine MDMA Negative (Negative); Urine Methadone Negative (Negative); Urine Methamphetamines Negative (Negative); Urine Oxycodone Negative (Negative); Urine Phencyclidine Negative (Negative); Urine Tetrahydrocannabinol Positive (Negative); Urine Tricyclic Antidepressant Negative (Negative); Urine pH Normal (Normal)
[2020-01-31 16:30] VITALS: PULSE 79; O2SAT 99
[2020-01-31 16:35] LABS: Add Manual Diff / Slide Review NO; Basophils Absolute Auto 0 /uL (0-100); Basophils Percent Auto 0.4 % (0-2); Eosinophils Absolute Auto 100 /uL (0-450); Eosinophils Percent Auto 1.2 % (2-4); Hematocrit 41.3 % (36-46); Hemoglobin 14.1 g/dL (12.0-16.0); Lymphocytes Absolute Auto 3700 /uL (1100-4500); Lymphocytes Percent Auto 33.2 % (25-40); Mean Corpuscular HGB Conc 34.1 % (30-36); Mean Corpuscular Volume 96.8 fL (80-100); Monocytes Absolute Auto 600 /uL (0-900); Monocytes Percent Auto 5.1 % (3-14); Neutrophils Absolute Auto 6700 /uL (1500-7000); Neutrophils Percent Auto 60.1 % (50-75); Platelet Count 287 X10^3/uL (150-400); Red Blood Cell Count 4.27 X10^6/uL (4.0-5.2); Red Cell Distribution Width 13.2 % (11.6-14.8); White Blood Cell Count 11.1 X10^3/uL (4.5-11.0)
[2020-01-31 16:42] LABS: Acetaminophen < 10 ug/mL (10-30); Alanine Aminotransferase 14 IU/L (<35); Albumin 4.4 g/dL (3.5-5.0); Albumin Globulin Ratio 1.7 (1.0-2.8); Alkaline Phosphatase 74 U/L (38-126); Aspartate Aminotransferase 23 IU/L (14-36); Bilirubin Total 0.3 mg/dL (0.2-1.3); Blood Urea Nitrogen 11 mg/dL (7-17); Calcium 8.8 mg/dL (8.4-10.2); Carbon Dioxide 24 mmol/L (22-32); Chloride 111 mmol/L (98-107); Estimated Glomerular Filt Rate > 60.0 mL/min (>60); Ethanol (ETOH) 209 mg/dL; Globulin 2.6 g/dL (1.7-4.1); Glucose 90 mg/dL (70-100); HEMOLYSIS < 15 (0-50); Potassium 3.8 mmol/L (3.4-5.1); Salicylate < 1.0 mg/dL (<20); Sodium 142 mmol/L (137-145)
[2020-01-31 17:00] VITALS: PULSE 76; O2SAT 98
[2020-01-31 17:18] LABS: Thyroid Stimulating Hormone 0.794 uIU/mL (0.47-4.68)
[2020-01-31 17:30] VITALS: PULSE 77; O2SAT 98
[2020-01-31 20:41] VITALS: BP 122/75; PULSE 77; RESP 16; TEMP 36.7; O2SAT 99
== END 2020-01-31 20:43 | disposition home or self-care (01) ==
PROVIDERS: Emergency Medicine; Emergency Provider Nurse Practitioner Family
DX: S61.011A Laceration without foreign body of right thumb without damage to nail, initial encounter (principal); F32.9 Major depressive disorder, single episode, unspecified; F20.9 Schizophrenia, unspecified; F10.129 Alcohol abuse with intoxication, unspecified; F12.90 Cannabis use, unspecified, uncomplicated; Y90.7 Blood alcohol level of 200-239 mg/100 ml; Z23 Encounter for immunization; W22.8XXA Striking against or struck by other objects, initial encounter
CPT/HCPCS: 12002; 73130; 80053; 80305; 80320; 80329; 81003; 81025; 84439; 84443; 85025; 90471; 99284; 90715; G0480

== ENCOUNTER 2020-06-15 17:26 | Emergency (ER) | payer OTHER, MEDICAID, SELFPAY ==
[2020-06-15] VITALS (11 sets, daily range): BP systolic 102–138; BP diastolic 63–87; PULSE 106–118; RESP 17–26; TEMP 36.8; O2SAT 98–100; BMI 16.6
--- NOTE | 2020-06-15 17:42 | DI.RAD.S_ITS ---
PROCEDURE: XR CHEST 1V INDICATIONS: chest pain TECHNIQUE: One view of the chest was acquired. COMPARISON: [facility], CR, XR CHEST 1V, 01/06/2019, 18:34. FINDINGS: Surgical changes and devices: None. Lungs and pleura: Lungs are clear. No pleural effusions or pneumothorax. Mediastinum: Mediastinal contours appear normal. Heart size is normal. Bones and chest wall: No suspicious bony lesions. Overlying soft tissues appear unremarkable. IMPRESSION: No acute cardiopulmonary abnormality. Dictated by: Chase Guo M.D. on 06/15/2020 at 17:05 Approved by: Chase Guo M.D. on 06/15/2020 at 17:05
[2020-06-15 17:58] LABS: Add Manual Diff / Slide Review NO; Basophils Absolute Auto 100 /uL (0-100); Basophils Percent Auto 0.5 % (0-2); Eosinophils Absolute Auto 1000 /uL (0-450); Hematocrit 39.4 % (36-46); Hemoglobin 13.6 g/dL (12.0-16.0); Lymphocytes Absolute Auto 3000 /uL (1100-4500); Lymphocytes Percent Auto 17.8 % (25-40); Mean Corpuscular HGB Conc 34.4 % (30-36); Mean Corpuscular Hemoglobin 32.5 PG (26-34); Mean Corpuscular Volume 94.3 fL (80-100); Monocytes Absolute Auto 900 /uL (0-900); Monocytes Percent Auto 5.4 % (3-14); Neutrophils Absolute Auto 11700 /uL (1500-7000); Neutrophils Percent Auto 70.3 % (50-75); Platelet Count 387 X10^3/uL (150-400); Red Blood Cell Count 4.17 X10^6/uL (4.0-5.2); Red Cell Distribution Width 12.6 % (11.6-14.8); White Blood Cell Count 16.6 X10^3/uL (4.5-11.0)
[2020-06-15] MEDS: SODIUM CHLORIDE 0.9% 1,000 ML 1000 ML IV (18:02)
[2020-06-15 18:10] LABS: Alanine Aminotransferase 20 IU/L (<35); Albumin 3.4 g/dL (3.5-5.0); Albumin Globulin Ratio 1.1 (1.0-2.8); Alkaline Phosphatase 71 U/L (38-126); Aspartate Aminotransferase 20 IU/L (14-36); BUN Creatinine Ratio 29.5 (6-22); Bilirubin Total 0.2 mg/dL (0.2-1.3); Blood Urea Nitrogen 13 mg/dL (7-17); Calcium 8.5 mg/dL (8.4-10.2); Carbon Dioxide 29 mmol/L (22-32); Chloride 105 mmol/L (98-107); Creatine Kinase 64 U/L (30-135); Estimated Glomerular Filt Rate > 60.0 mL/min (>60); Glucose 139 mg/dL (70-100); HEMOLYSIS < 15 (0-50); Potassium 2.8 mmol/L (3.4-5.1); Sodium 137 mmol/L (137-145); Total Protein 6.4 g/dL (6.3-8.2)
[2020-06-15 18:21] LABS: Troponin I 0.027 ng/mL (0.01-0.034)
--- NOTE | 2020-06-15 18:21 | ED_ITS ---
HPI - Chest Pain <CHIDI Chung - Last Filed: 06/15/20 20:55> General Chief Complaint: Chest Pain Stated Complaint: chest pain Time Seen by Provider: 06/15/20 17:40 Source: patient and EMS Mode of arrival: EMS Limitations: no limitations History of Present Illness HPI narrative: 30yo female, homeless, history of tachycardia, presents to the emergency department for chest pain. She describes it as a dull aching left substernal chest pain that started approximately 20 minutes ago. She states it is constant, denies any aggravating or alleviating symptoms. She states she was sitting down when this happened, denies worsening symptoms with activity. Patient denies any other symptoms such as cough, chest pain, shortness of breath, dizziness, nausea, vomiting, diarrhea, or any other concerns. Related Data Home Medications Medication Instructions Recorded Confirmed lurasidone [Latuda] 20 mg PO DAILY 01/31/20 01/31/20 venlafaxine [Effexor XR] See Rx Instructions .ROUTE .COMPLEX 01/31/20 01/31/20 Allergies Allergy/AdvReac Type Severity Reaction Status Date / Time No Known Drug Allergies Allergy Verified 01/31/20 15:12 Review of Systems <CHIDI Chung - Last Filed: 06/15/20 20:55> Review of Systems Narrative: REVIEW OF SYSTEMS: GENERAL: Denies fever or chills. HENT: No head trauma. CARDIOVASCULAR: Reports chest pain, see HPI. RESPIRATORY: No cough. GASTROINTESTINAL: No vomiting. GENITOURINARY: No flank pain. MUSCULOSKELETAL: No pain, weakness, or trauma. INTEGUMENTARY: No rash, lesions, or pruritus. NEURO: No numbness, tingling. PSYCH: No behavior or mood changes. Patient History <CHIDI Chung - Last Filed: 06/15/20 20:55> Medical History Depression Palpitation Surgical History History of third molar tooth extraction History of third molar tooth extraction Social History Smoking Status: Current every day smoker Smoking Status: Current every day smoker tobacco type: vaping alcohol intake frequency: 0-2 drinks per day Substance Use Type: does not use and former substance user Exam <CHIDI Chung - Last Filed: 06/15/20 20:55> Initial Vital Signs Initial Vital Signs: Vital Signs Pulse Rate 117 H 06/15/20 17:37 Pulse Oximetry 100 06/15/20 17:37 PHYSICAL EXAMINATION: GENERAL: Disheveled, awake and alert. Answers questions appropriately. HENT: Normocephalic, atraumatic. Hearing intact. Oral mucosa is pink and moist. EYES: Conjunctiva pink, sclera white, no periorbital swelling. CARDIOVASCULAR: S1 and S2 sounds normal. Regular rate and rhythm, no murmurs, clicks, or bruits. No pedal edema. RESPIRATORY: Normal respiratory rate, trachea midline, airway patent. No stridor, nasal flaring or accessory muscle use. Lungs are clear in all carrion without wheeze, rhonchi, or crackles. GASTROINTESTINAL: Bowel sounds normoactive. Abdomen is soft, slight LUQ te nderness. No organomegaly, no palpable masses. Patient eating and drinking crackers, do read as, injuries. GENITALURINARY: No flank tenderness. MUSCULOSKELETAL: Normal gait and coordination. Equal tone and mass bilaterally. EXTREMITIES: CMS intact, no pedal edema. SKIN: Warm, dry, soft, appropriate color for ethnicity. No lesions, rashes, or wounds to visualized areas. NEURO: Alert and Oriented X 3. Good coordination. No ataxia, or sensory deficits, or cognitive issues. PSYCH: Appropriate affect and mood. <Beck Painting DO - Last Filed: 06/15/20 21:30> Initial Vital Signs Initial Vital Signs: Vital Signs Pulse Rate 117 H 06/15/20 17:37 Pulse Oximetry 100 06/15/20 17:37 Scores <CHIDI Chung - Last Filed: 06/15/20 20:55> PERC Score Age greater than or equal to 50 years: No Heart rate greater than or equal to 100 bpm: Yes Room Air O2 Sat less than 95%: No Unilateral leg swelling: No Recent trauma or surgery: No Hemoptysis: No Prior PE or DVT: No Hormone Use: No Total PERC Score: 1 Wells' Criteria for PE Clinical signs and symptoms of DVT: No PE is #1 Dx or equally likely: No Heart rate > 100: Yes Immobilization at least 3 days or surg in previous 4 weeks: No History of PE or DVT: No Hemoptysis: No Malignancy w/Treatment within 6 months or palliative: No Wells' PE Score total: 1.5 Course <CHIDI Chung - Last Filed: 06/15/20 20:55> Course Course Narrative: 193: I spoke with CHIDI Schneider discussed patient's symptoms, tests, and test results. We discussed that patient is able to keep p. o. fluids, she can be discharged as this is most likely the protocol for discharge after being admitted. There may be no benefit to admission if she is able to take p.o. nutrition. Patient able to eat and drink lots of applesauce and Jell-O. She was also seen eating Doritos when I entered the room. Orders Ordered: ED Orders 06/15/20 17:42 XR chest 1V Stat EKG-12 Lead Stat 06/15/20 17:50 Complete Blood Count AUTO DIFF Stat Comprehensive Metabolic Panel Stat D Dimer Stat Erythrocyte Sedimentation Rate Stat Ethanol (ETOH) Stat Lipase Stat Triglycerides Stat Troponin & CK Cardiac Panel Stat 06/15/20 18:39 US abdomen limited Stat Discontinued Medications Aspirin (Aspirin 81 Mg Chew Tab) 324 mg PO NOW ONE Stop: 06/15/20 17:43 Last Admin: 06/15/20 19:50 Dose: Not Given Documented by: KYLAH Sodium Chloride (Normal Saline 0.9%) 1,000 mls @ 150 mls/hr IV CONT MAKAYLA Last Admin: 06/15/20 19:50 Dose: Not Given Documented by: NASIRMEN Sodium Chloride (Normal Saline 0.9%) 1,000 mls @ 1,000 mls/hr IV BOLUS ONE Stop: 06/15/20 18:59 Last Infusion: 06/15/20 19:02 Dose: 0 mls/hr Documented by: Admin: 06/15/20 18:02 Dose: 1,000 mls/hr Documented by: DIPIKA Potassium Chloride 20 meq/ (Sodium Chloride) 260 mls @ 130 mls/hr IV NOW ONE Stop: 06/15/20 20:19 Last Admin: 06/15/20 18:35 Dose: 130 mls/hr Documented by: DIPIKA Cosigned by: KBROTEM Potassium Chloride (Potassium Chloride 20 Meq/15 Ml Udc) 40 meq PO NOW ONE Stop: 06/15/20 18:20 Last Admin: 06/15/20 18:33 Dose: 40 meq Documented by: DIPIKA Consultations Consultation #1: Patient staffed with Garima discussed test, test results, plan here Vital Signs Vital signs: Vital Signs - 8 hr 06/15/20 17:37 06/15/20 17:38 06/15/20 17:44 Temperature 98.3 F 98.3 F Pulse Rate 117 H 118 H 118 H Respiratory Rate 18 18 Blood Pressure 122/87 122/87 Pulse Oximetry 100 100 100 06/15/20 18:00 06/15/20 18:30 06/15/20 19:00 Temperature Pulse Rate 116 H 106 H 112 H Respiratory Rate 26 H 18 19 Blood Pressure 121/75 119/78 110/65 Pulse Oximetry 98 98 99 06/15/20 19:30 06/15/20 20:00 Temperature Pulse Rate 109 H 118 H Respiratory Rate 17 Blood Pressure 102/63 136/76 Pulse Oximetry 99 100 <Beck Painting DO - Last Filed: 06/15/20 21:30> Orders Ordered: ED Orders 06/15/20 17:42 XR chest 1V Stat EKG-12 Lead Stat 06/15/20 17:50 Complete Blood Count AUTO DIFF Stat Comprehensive Metabolic Panel Stat D Dimer Stat Erythrocyte Sedimentation Rate Stat Ethanol (ETOH) Stat Lipase Stat Triglycerides Stat Troponin & CK Cardiac Panel Stat 06/15/20 18:39 US abdomen limited Stat Discontinued Medications Aspirin (Aspirin 81 Mg Chew Tab) 324 mg PO NOW ONE Stop: 06/15/20 17:43 Last Admin: 06/15/20 19:50 Dose: Not Given Documented by: BSMEN Sodium Chloride (Normal Saline 0.9%) 1,000 mls @ 150 mls/hr IV CONT MAKAYLA Last Admin: 06/15/20 19:50 Dose: Not Given Documented by: BSMEN Sodium Chloride (Normal Saline 0.9%) 1,000 mls @ 1,000 mls/hr IV BOLUS ONE Stop: 06/15/20 18:59 Last Infusion: 06/15/20 19:02 Dose: 0 mls/hr Documented by: Admin: 06/15/20 18:02 Dose: 1,000 mls/hr Documented by: DIPIKA Potassium Chloride 20 meq/ (Sodium Chloride) 260 mls @ 130 mls/hr IV NOW ONE Stop: 06/15/20 20:19 Last Admin: 06/15/20 18:35 Dose: 130 mls/hr Documented by: MMINOR Cosigned by: KBROTEM Potassium Chloride (Potassium Chloride 20 Meq/15 Ml Udc) 40 meq PO NOW ONE Stop: 06/15/20 18:20 Last Admin: 06/15/20 18:33 Dose: 40 meq Documented by: MMINOR Vital Signs Vital signs: Vital Signs - 8 hr 06/15/20 17:37 06/15/20 17:38 06/15/20 17:44 Temperature 98.3 F 98.3 F Pulse Rate 117 H 118 H 118 H Respiratory Rate 18 18 Blood Pressure 122/87 122/87 Pulse Oximetry 100 100 100 06/15/20 18:00 06/15/20 18:30 06/15/20 19:00 Temperature Pulse Rate 116 H 106 H 112 H Respiratory Rate 26 H 18 19 Blood Pressure 121/75 119/78 110/65 Pulse Oximetry 98 98 99 06/15/20 19:30 06/15/20 20:00 Temperature Pulse Rate 109 H 118 H Respiratory Rate 17 Blood Pressure 102/63 136/76 Pulse Oximetry 99 100 MDM - Chest Pain <CHIDI Chung - Last Filed: 06/15/20 20:55> Medical Records Data Attestation: I reviewed the patient's medical records. Lab Data Attestation: I reviewed the patient's lab results. Result diagrams: 06/15/20 17:50 06/15/20 17:50 Labs: Lab Results 06/15/20 06/15/20 06/15/20 Range/Units 17:50 17:50 17:50 WBC 16.6 H (4.5-11.0) X10^3/uL RBC 4.17 (4.0-5.2) X10^6/uL Hgb 13.6 (12.0-16.0) g/dL Hct 39.4 (36-46) % MCV 94.3 (80-100) fL MCH 32.5 (26-34) PG MCHC 34.4 (30-36) % RDW 12.6 (11.6-14.8) % Plt Count 387 (150-400) X10^3/uL Neut % (Auto) 70.3 (50-75) % Lymph % (Auto) 17.8 L (25-40) % Evangeline % (Auto) 5.4 (3-14) % Eos % (Auto) 6.0 H (2-4) % Baso % (Auto) 0.5 (0-2) % Neut # (Auto) 89904 H (6599-9127) /uL Lymph # (Auto) 3000 (7278-6086) /uL Evangeline # (Auto) 900 (0-900) /uL Eos # (Auto) 1000 H (0-450) /uL Baso # (Auto) 100 (0-100) /uL ESR 12 (0-20) MM/HR D-Dimer (<230) ng/mL Sodium 137 (137-145) mmol/L Potassium 2.8 L (3.4-5.1) mmol/L Chloride 105 (98-107) mmol/L Carbon Dioxide 29 (22-32) mmol/L BUN 13 (7-17) mg/dL Creatinine 0.44 L (0.52-1.04) mg/dL Estimated GFR > 60.0 (>60) mL/min BUN/Creatinine Ratio 29.5 H (6-22) Glucose 139 H (70-100) mg/dL Calcium 8.5 (8.4-10.2) mg/dL Total Bilirubin 0.2 (0.2-1.3) mg/dL AST 20 (14-36) IU/L ALT 20 (<35) IU/L Alkaline Phosphatase 71 (38-126) U/L Total Creatine Kinase 64 (30-135) U/L CK-MB (CK-2) TNP CK-MB (CK-2) Rel Index TNP Troponin I 0.027 (0.01-0.034) ng/mL Total Protein 6.4 (6.3-8.2) g/dL Albumin 3.4 L (3.5-5.0) g/dL Globulin 3.0 (1.7-4.1) g/dL Albumin/Globulin Ratio 1.1 (1.0-2.8) Triglycerides (35-150) mg/dL Lipase 26836 H (23-300) U/L Ethyl Alcohol ( - 10) mg/dL 06/15/20 06/15/20 Range/Units 17:50 17:50 WBC (4.5-11.0) X10^3/uL RBC (4.0-5.2) X10^6/uL Hgb (12.0-16.0) g/dL Hct (36-46) % MCV (80-100) fL MCH (26-34) PG MCHC (30-36) % RDW (11.6-14.8) % Plt Count (150-400) X10^3/uL Neut % (Auto) (50-75) % Lymph % (Auto) (25-40) % Evangeline % (Auto) (3-14) % Eos % (Auto) (2-4) % Baso % (Auto) (0-2) % Neut # (Auto) (7474-1833) /uL Lymph # (Auto) (3390-1381) /uL Evangeline # (Auto) (0-900) /uL Eos # (Auto) (0-450) /uL Baso # (Auto) (0-100) /uL ESR (0-20) MM/HR D-Dimer 237 H (<230) ng/mL Sodium (137-145) mmol/L Potassium (3.4-5.1) mmol/L Chloride (98-107) mmol/L Carbon Dioxide (22-32) mmol/L BUN (7-17) mg/dL Creatinine (0.52-1.04) mg/dL Estimated GFR (>60) mL/min BUN/Creatinine Ratio (6-22) Glucose (70-100) mg/dL Calcium (8.4-10.2) mg/dL Total Bilirubin (0.2-1.3) mg/dL AST (14-36) IU/L ALT (<35) IU/L Alkaline Phosphatase (38-126) U/L Total Creatine Kinase (30-135) U/L CK-MB (CK-2) CK-MB (CK-2) Rel Index Troponin I (0.01-0.034) ng/mL Total Protein (6.3-8.2) g/dL Albumin (3.5-5.0) g/dL Globulin (1.7-4.1) g/dL Albumin/Globulin Ratio (1.0-2.8) Triglycerides 168 H (35-150) mg/dL Lipase (23-300) U/L Ethyl Alcohol < 10 ( - 10) mg/dL Imaging Data Chest x-ray: Radiologist's Impression: [facility] [place] [id number] ReportSigned Patient: Ronel Smith [facility]#: [id number]: 1990Acct:[id number]/Sex: 30 / FDate of Service: 06/15/20Loc: EDAccession Number: [id number] Procedure: XR chest 1V Ordering Provider: Inderjit Conner MD PROCEDURE: XR CHEST 1V INDICATIONS: chest pain TECHNIQUE: One view of the chest was acquired. COMPARISON: [facility], , XR CHEST 1V, 01/06/2019, 18:34. FINDINGS: Surgical changes and devices: None. Lungs and pleura: Lungs are clear. No pleural effusions or pneumothorax. Mediastinum: Mediastinal contours appear normal. Heart size is normal. Bones and chest wall: No suspicious bony lesions. Overlying soft tissues appear unremarkable. IMPRESSION: No acute cardiopulmonary abnormality. Dictated by: Chase Guo M.D. on 06/15/2020 at 17:05 Approved by: Chase Guo M.D. on 06/15/2020 at 17:05 US - abdomen: My Impression: US tech reported contracted gallbladder. Increased prominence of pancreatic head. ECG Data Interpretation: 1812: Sinus rhythm, rate 107, PA interval 128, QTC 401. No ST elevation or ST depression. T-wave inversion noted in V1.. EKG also viewed by Dr Conner per protocol. MDM Narrative Medical decision making narrative: 30-year-old female presenting to the emergency department for left-sided chest pain. I suspect her pain is most likely caused by pancreatitis. This is most likely triglyceride induced verses ETOH given laboratory results in history. Patient has elevated lipase which is significant and an elevated white count however, she is eating and drinking fluids and food without any difficulty. She denies any abdominal issues such as vomiting. Patient has been seen eating to re-dose in her room when I enter. I discussed with the hospitalist, he agreed that if patient is able to tolerate p.o. foods and fluids that discharge was appropriate. She was encouraged to maintain a clear liquid diet for the next few days and then a bland diet. Less concern for cardiac etiology given nature of pain, negative troponin, negative chest x-ray, and unremarkable EKG. Less concern for acute abdominal etiology given minimal pain on palpation with examiner examination, lack of vomiting or profuse diarrhea. Patient is afebrile and able to tolerate food. Less concern for acute infection given no significant findings on ultrasound, patient is well-appearing and afebrile. Patient does have an elevated heart rate, she has diagnosed tachycardia HR seen to be average 106/118 in all prior visits. She was given fluids and potassium to replace potassium that was low. No other symptoms infection such as cellulitis. Less concern for PE given lack of respiratory symptoms such as shortness of breath. Patient is non hypoxic, she is not dyspneic. Respirations within normal limits. D-dimer is negative. Less likely pericarditis given nature of pain, patient declines using IV drugs, ESR and sed rate within normal limits. Less likely surgical given wet read of ultrasound. Patient was discharge, return precautions given for new or worsening symptoms. She was encouraged to establish a primary care provider in follow-up. Official results of US not resulted at this time, Dr. Painting notified of this to check results prior to patient discharge. <Beck Painting, DO - Last Filed: 06/15/20 21:30> Lab Data Labs: Lab Results 06/15/20 06/15/20 06/15/20 Range/Units 17:50 17:50 17:50 WBC 16.6 H (4.5-11.0) X10^3/uL RBC 4.17 (4.0-5.2) X10^6/uL Hgb 13.6 (12.0-16.0) g/dL Hct 39.4 (36-46) % MCV 94.3 (80-100) fL MCH 32.5 (26-34) PG MCHC 34.4 (30-36) % RDW 12.6 (11.6-14.8) % Plt Count 387 (150-400) X10^3/uL Neut % (Auto) 70.3 (50-75) % Lymph % (Auto) 17.8 L (25-40) % Evangeline % (Auto) 5.4 (3-14) % Eos % (Auto) 6.0 H (2-4) % Baso % (Auto) 0.5 (0-2) % Neut # (Auto) 53905 H (3276-2551) /uL Lymph # (Auto) 3000 (9348-2437) /uL Evangeline # (Auto) 900 (0-900) /uL Eos # (Auto) 1000 H (0-450) /uL Baso # (Auto) 100 (0-100) /uL ESR 12 (0-20) MM/HR D-Dimer (<230) ng/mL Sodium 137 (137-145) mmol/L Potassium 2.8 L (3.4-5.1) mmol/L Chloride 105 (98-107) mmol/L Carbon Dioxide 29 (22-32) mmol/L BUN 13 (7-17) mg/dL Creatinine 0.44 L (0.52-1.04) mg/dL Estimated GFR > 60.0 (>60) mL/min BUN/Creatinine Ratio 29.5 H (6-22) Glucose 139 H (70-100) mg/dL Calcium 8.5 (8.4-10.2) mg/dL Total Bilirubin 0.2 (0.2-1.3) mg/dL AST 20 (14-36) IU/L ALT 20 (<35) IU/L Alkaline Phosphatase 71 (38-126) U/L Total Creatine Kinase 64 (30-135) U/L CK-MB (CK-2) TNP CK-MB (CK-2) Rel Index TNP Troponin I 0.027 (0.01-0.034) ng/mL Total Protein 6.4 (6.3-8.2) g/dL Albumin 3.4 L (3.5-5.0) g/dL Globulin 3.0 (1.7-4.1) g/dL Albumin/Globulin Ratio 1.1 (1.0-2.8) Triglycerides (35-150) mg/dL Lipase 76323 H (23-300) U/L Ethyl Alcohol ( - 10) mg/dL 06/15/20 06/15/20 Range/Units 17:50 17:50 WBC (4.5-11.0) X10^3/uL RBC (4.0-5.2) X10^6/uL Hgb (12.0-16.0) g/dL Hct (36-46) % MCV (80-100) fL MCH (26-34) PG MCHC (30-36) % RDW (11.6-14.8) % Plt Count (150-400) X10^3/uL Neut % (Auto) (50-75) % Lymph % (Auto) (25-40) % Evangeline % (Auto) (3-14) % Eos % (Auto) (2-4) % Baso % (Auto) (0-2) % Neut # (Auto) (7171-0725) /uL Lymph # (Auto) (6785-8222) /uL Evangeline # (Auto) (0-900) /uL Eos # (Auto) (0-450) /uL Baso # (Auto) (0-100) /uL ESR (0-20) MM/HR D-Dimer 237 H (<230) ng/mL Sodium (137-145) mmol/L Potassium (3.4-5.1) mmol/L Chloride (98-107) mmol/L Carbon Dioxide (22-32) mmol/L BUN (7-17) mg/dL Creatinine (0.52-1.04) mg/dL Estimated GFR (>60) mL/min BUN/Creatinine Ratio (6-22) Glucose (70-100) mg/dL Calcium (8.4-10.2) mg/dL Total Bilirubin (0.2-1.3) mg/dL AST (14-36) IU/L ALT (<35) IU/L Alkaline Phosphatase (38-126) U/L Total Creatine Kinase (30-135) U/L CK-MB (CK-2) CK-MB (CK-2) Rel Index Troponin I (0.01-0.034) ng/mL Total Protein (6.3-8.2) g/dL Albumin (3.5-5.0) g/dL Globulin (1.7-4.1) g/dL Albumin/Globulin Ratio (1.0-2.8) Triglycerides 168 H (35-150) mg/dL Lipase (23-300) U/L Ethyl Alcohol < 10 ( - 10) mg/dL Imaging Data US - abdomen: Radiologist's Impression: [address] [id number] ReportSigned Patient: Ronel Smith [facility]#: [id number]: 1990Acct:[id number]/Sex: 30 / FDate of Service: 06/15/20Loc: EDAccession Number: [id number] Procedure: US abdomen limited Ordering Provider: Deepika Delgado PROCEDURE: US ABDOMEN LIMITED INDICATIONS: CHEST PAIN TECHNIQUE: Real-time scanning was performed of the abdominal and retroperitoneal organs, with image documentation. COMPARISON: None. FINDINGS: Liver: Liver is normal in size and homogeneous in echotexture. Gallbladder: The gallbladder is contracted and the wall cannot be measured. Biliary ducts: Intrahepatic bile ducts are non-dilated. Extrahepatic bile duct caliber measures 3.8 mm. Normal is 6-7 mm or less in diameter, or 10 mm or less post-cholecystectomy. Pancreas: The head of the pancreas is unremarkable. The body and tail are poorly characterized. IMPRESSION: 1. Contracted gallbladder. Although there are no ancillary findings to suggest cholelithiasis or acute cholecystitis. Acute cholecystitis or choledocholithiasis cannot be excluded. 2. Pancreas not well characterized. If further characterization is warranted, CT of the abdomen with contrast is recommended. Dictated by: Caty Shipley M.D. on 06/15/2020 at 20:56 Approved by: Caty Shipley M.D. on 06/15/2020 at 20:58 Discharge Plan Departure Patient Disposition: Home Clinical Impression: Acute pancreatitis Qualifiers: Pancreatitis type: unspecified pancreatitis type Acute pancreatitis complication: unspecified Qualified Code(s): K85.90 - Acute pancreatitis without necrosis or infection, unspecified Instructions: DI for Pancreatitis Activity Restrictions/Additional Instructions: Thank you for entrusting me with your care today. As discussed, your laboratory work shows that you have pancreatitis, this is an inflammation of your pancreas. This can cause significant abdominal pain and or vomiting, this may be contributing to your chest pain. I suggest a clear liquid diet, eat and drink only things that you can see through such as Jell-O or juice for the next 3 days. Then progressed to a bland diet such as crackers. Decreased the amount of food to eat with high fat contact such as Burgers and fried food as this can make symptoms worse. Please follow-up with a primary care provider in the next 1-2 weeks. Return emergency department for any new or worsening symptoms. Prescriptions: No Action venlafaxine [Effexor XR] 37.5 mg Capsule,Extended Release 24hr See Rx Instructions .ROUTE .COMPLEX RF: 0 Latuda 20 mg Tablet 20 mg PO DAILY RF: 0 Referrals: Cindy Mcallister ARNP [[facility]] -
[2020-06-15 18:29] LABS: Lipase 11971 U/L (23-300)
[2020-06-15 18:31] LABS: D Dimer 237 ng/mL (<230)
[2020-06-15] MEDS: POTASSIUM CHLORIDE 20 MEQ/15 ML UDC 40 MEQ PO (18:33)
[2020-06-15] MEDS: POTASSIUM CHLORIDE 20 MEQ in SODIUM CHLORIDE 0.9% 250 ML 130 ML IV (18:35)
--- NOTE | 2020-06-15 18:39 | DI.US.S_ITS ---
PROCEDURE: US ABDOMEN LIMITED INDICATIONS: CHEST PAIN TECHNIQUE: Real-time scanning was performed of the abdominal and retroperitoneal organs, with image documentation. COMPARISON: None. FINDINGS: Liver: Liver is normal in size and homogeneous in echotexture. Gallbladder: The gallbladder is contracted and the wall cannot be measured. Biliary ducts: Intrahepatic bile ducts are non-dilated. Extrahepatic bile duct caliber measures 3.8 mm. Normal is 6-7 mm or less in diameter, or 10 mm or less post-cholecystectomy. Pancreas: The head of the pancreas is unremarkable. The body and tail are poorly characterized. IMPRESSION: 1. Contracted gallbladder. Although there are no ancillary findings to suggest cholelithiasis or acute cholecystitis. Acute cholecystitis or choledocholithiasis cannot be excluded. 2. Pancreas not well characterized. If further characterization is warranted, CT of the abdomen with contrast is recommended. Dictated by: Caty Shipley M.D. on 06/15/2020 at 20:56 Approved by: Caty Shipley M.D. on 06/15/2020 at 20:58
[2020-06-15 18:50] LABS: Ethanol (ETOH) < 10 mg/dL; Triglycerides 168 mg/dL (35-150)
[2020-06-15 18:52] LABS: Erythrocyte Sedimentation Rate 12 MM/HR (0-20)
--- NOTE | 2020-06-15 19:39 | PC.NURSE ---
provider request for patient to have a PO trial with clear liquids. I gave patient some water, applejuice and applesauce. provider aware and no new orders at this time.
== END 2020-06-15 22:05 | disposition home or self-care (01) ==
PROVIDERS: Emergency Medicine; Emergency Provider Nurse Practitioner
DX: K85.90 Acute pancreatitis without necrosis or infection, unspecified (principal); R07.9 Chest pain, unspecified; R00.0 Tachycardia, unspecified; D72.829 Elevated white blood cell count, unspecified; E87.6 Hypokalemia
CPT/HCPCS: 36415; 71045; 76705; 80053; 80320; 82550; 83690; 84478; 84484; 85025; 85379; 85651; 93005; 96365; 96366; 99283; 99284; J3480

== ENCOUNTER 2020-06-16 08:24 | Emergency (ER) | payer OTHER, MEDICAID, SELFPAY ==
[2020-06-16 08:31] VITALS: BP 123/86; PULSE 101; RESP 16; TEMP 36.5; O2SAT 100; BMI 16.6
--- NOTE | 2020-06-16 08:51 | ED_ITS ---
HPI - Back Pain/Injury General Chief Complaint: Back Pain/Injury Stated Complaint: GLF Time Seen by Provider: 06/16/20 11:16 Source: patient Mode of arrival: Ambulatory Limitations: no limitations History of Present Illness HPI Narrative: The patient presents by EMS with low back pain. She was out walking this morning, she slipped and fell on an icy sidewalk. Her feet flutter, she fell backwards. There was no head or neck injury. She denies LOC, confusion or visual changes. She has no dyspnea. She has mid and lower back pain. She is mobile with this pain. She has no associated chest pain, dyspnea, and abdominal pain. She denies . She has no lower extremity pain/injuries. She has no numbness or weakness. She denies recent illness. She was seen in this ER yesterday with pancreatitis. Admission was discussed, but apparently she improved well enough to go home. She is eating and drinking now, without significant abdominal discomfort Related Data Home Medications Medication Instructions Recorded Confirmed lurasidone [Latuda] 20 mg PO DAILY 01/31/20 01/31/20 venlafaxine [Effexor XR] See Rx Instructions .ROUTE .COMPLEX 01/31/20 01/31/20 Previous Rx's Medication Instructions Recorded oxycodone-acetaminophen [Percocet] 1 tab PO Q4-6H PRN #20 tab 06/16/20 Allergies Allergy/AdvReac Type Severity Reaction Status Date / Time No Known Drug Allergies Allergy Verified 01/31/20 15:12 Review of Systems Constitutional Constitutional: Reports as per HPI and Denies frequent falls Eyes Eyes: Denies change in vision ENT Ears, Nose, Mouth, and Throat: Denies dizziness Comments: No head or neck injury Cardiovascular Cardiovascular: Denies chest pain and Denies dyspnea Respiratory Respiratory: Denies cough and Denies dyspnea Gastrointestinal Gastrointestinal: Denies abdominal pain, Denies nausea and Denies vomiting Genitourinary Genitourinary: Denies dysuria Genitourinary: Denies dysuria Comments: Not . Musculoskeletal Musculoskeletal: Reports as per HPI and Denies numbness Integumentary/Breasts Skin/Breast: Denies rash and Denies wounds Neurologic Neurologic: Denies confusion, Denies dizziness, Denies frequent falls and Denies numbness Psychiatric Psychiatric: Denies confusion Patient History Medical History (Updated 12/03/20 @ 15:08 by Inderjit Conner MD) Depression Palpitation Pancreatitis Surgical History History of third molar tooth extraction History of third molar tooth extraction Social History Smoking Status: Current every day smoker Smoking Status: Current every day smoker tobacco type: vaping alcohol intake frequency: 0-2 drinks per day Substance Use Type: does not use and former substance user Exam Initial Vital Signs Initial Vital Signs: Vital Signs Temperature 97.7 F 06/16/20 08:31 Pulse Rate 101 H 06/16/20 08:31 Respiratory Rate 16 06/16/20 08:31 Blood Pressure 123/86 06/16/20 08:31 Pulse Oximetry 100 06/16/20 08:31 Const General: cooperative and well developed Nutritional Appearance: well nourished HENDE Head: normocephalic and atraumatic Neck Other: Nontender. Chest Chest: normal inspection of the chest Resp Auscultation: clear to auscultation bilaterally Cardio Rate: regular rate Rhythm: regular rhythm Heart Sounds: S1 normal, S2 normal, no click, no gallops, no murmurs and no rubs Pulses: normal peripheral pulses GI Palpation: soft and No tender Auscultation: normal bowel sounds Back/Spine/Pelvis Other: Tenderness over the lower thoracic spine and the upper lumbar spine without contusion or abrasion. No deformity. Normal range of motion. No SI tenderness. Skin Lesions: no lesions Rashes: no rashes Neuro General: patient alert, patient oriented x3, gait normal and no focal motor deficits Speech: speech normal Sensory Exam: no sensory deficits noted Extrem Other: Full range of motion to all extremities, no obvious trauma to the extremities. Normal straight raise leg bilaterally. Normal bilateral knee jerk DTRs. Course Course Course Narrative: And L1 compression fractures discovered on the evaluation. She was initially given Toradol for pain. She was then given Percocet for ongoing pain. The case was discussed with Ortho, Dr. Isaacs. He reviewed the patient's MRI. He recommended a TLSO or 3 point crash splint. TLSO was immediately able, and was fitted by physical therapy. I gave her instructions. She will be discharged on Percocet for pain. She is advised to arrange follow- up with Dr. Isaacs. Orders Ordered: ED Orders 06/16/20 08:58 XR lumbar spine 2-3V Stat XR thoracic spine 3V Stat 06/16/20 09:47 MR lumbar spine wo con Stat 06/16/20 13:42 Consult to Physical Therapy Evaluate & Treat Discontinued Medications Ketorolac Tromethamine (Ketorolac 60 Mg/2 Ml Vial) 60 mg IM NOW ONE Stop: 06/16/20 08:59 Last Admin: 06/16/20 09:22 Dose: 60 mg Documented by: RAVI Oxycodone/Acetaminophen (Oxycodone/Acetaminophen 5/325 Tablet) 1 tab PO NOW ONE Stop: 06/16/20 14:41 Last Admin: 06/16/20 14:48 Dose: 1 tab Documented by: FACUNDO Vital Signs Vital signs: Vital Signs - 8 hr 06/16/20 08:31 06/16/20 11:17 06/16/20 13:10 Temperature 97.7 F Pulse Rate 101 H 101 H 101 H Respiratory Rate 16 14 16 Blood Pressure 123/86 101/59 L 128/72 Pulse Oximetry 100 100 100 MDM - Back Pain/Injury Lab Data Labs: Point of Care Testing Test Results Negative Urine Dip Bedside Urine Glucose Negative Bedside Urine Bilirubin - Negative Bedside Urine Ketone - Negative Urine Specific [place] 1.020 Bedside Urine Occult Blood +/- Bedside Urine pH 6.5 Bedside Urine Protein - Negative Bedside Urine Urobilinogen +/- 1mg Bedside Urine Nitrite - Negative Bedside Urine Leukocytes - Negative Esterase Imaging Data T-spine x-ray: Radiologist's Impression: L1 compression fracture L-spine x-ray: Radiologist's Impression: L1 compression fracture Lumbar MRI: Radiologist's Impression: [address] [id number] Resonance ReportSigned Patient: Ronel Smith [facility]#: [id number]: 1990Acct:[id number]/Sex: 30 / FDate of Service: 06/16/20Loc: EDAccession Number: [id number] Procedure: MR lumbar spine wo con Ordering Provider: Inderjit Conner MD PROCEDURE: MR LUMBAR SPINE WO CON INDICATIONS: L1 compression fracture TECHNIQUE: Noncontrast sagittal T1 spin echo and T2 fast echo, sagittal STIR, axial T1 and T2 fast spin echo through the lumbar spine. In cases with scoliosis, additional coronal T2 fast spin echo may be performed. COMPARISON: None. FINDINGS: Image quality: Excellent. Alignment and Curvature: There is straightening of normal lumbar lordosis. Bone Marrow: Marrow edema involving upper portion of L1 vertebral body is seen with acute appearing anterior wedge compression deformity of L1 vertebral body and up to 23 percent loss of L1 vertebral body height anteriorly. Minimal retropulsion of the posterior wall at L1 level is seen without significant central canal stenosis. Spinal Cord: Conus medullaris terminates at the T12-L1 level. Visualized cord demonstrates normal signal and size. Paraspinous Soft Tissues: No paravertebral masses. L1-L2: Normal appearance. L2-L3: Normal appearance. L3-L4: Normal appearance. L4-L5: Normal appearance. L5-S1: Normal appearance. IMPRESSION: 1. Acute anterior wedge compression deformity of L1 with up to 23 percent loss of L1 vertebral body height anteriorly. Minimal retropulsion of posterior wall without significant central canal stenosis. 2. No other compression fracture or spondylolisthesis is seen in lumbar spine. Dictated by: Maciej Bravo M.D. on 06/16/2020 at 11:25 Approved by: Maciej Bravo M.D. on 06/16/2020 at 11:41 Discharge Plan Departure Patient Disposition: Home Clinical Impression: Closed compression fracture of L1 vertebra Qualifiers: Encounter type: initial encounter Qualified Code(s): S32.010A - Wedge compression fracture of first lumbar vertebra, initial encounter for closed fracture Instructions: Vertebral Compression Fracture Activity Restrictions/Additional Instructions: Advil 3 tabs every 6 hours as needed for pain. You may also take Percocet 1 tablet every 4 hours as needed for pain. Use the brace for your back when up and active. You may take the brace off for rest, for bathing as needed. I will give you contact information for Dr. Isaacs, orthopedics. Call his office to arrange a follow-up appointment. Prescriptions: New oxycodone-acetaminophen [Percocet] 5-325 mg tablet 1 tab PO Q4-6H PRN (Reason: pain) Qty: 20 RF: 0 No Action venlafaxine [Effexor XR] 37.5 mg Capsule,Extended Release 24hr See Rx Instructions .ROUTE .COMPLEX RF: 0 Latuda 20 mg Tablet 20 mg PO DAILY RF: 0 Referrals: Ronald Isaacs MD [Physician] -
--- NOTE | 2020-06-16 08:58 | DI.RAD.S_ITS ---
PROCEDURE: XR LUMBAR SPINE 2-3V INDICATIONS: Fall. Lower thoracic pain. TECHNIQUE: 3 views of the lumbar spine were acquired. COMPARISON: None. FINDINGS: Bones: 5 [id number] vertebrae are present. There is normal bony alignment. Anterior wedge compression deformity at L1 level is seen with up to 22 percent loss of vertebral body height anteriorly.. No suspicious bony lesions. Soft tissues: Overlying bowel gas pattern is normal. No suspicious soft tissue calcifications. IMPRESSION: Acute appearing anterior wedge compression deformity at L1 level with up to 22 percent loss of L1 vertebral body height anteriorly. Dictated by: Maciej Bravo M.D. on 06/16/2020 at 9:35 Approved by: Maciej Bravo M.D. on 06/16/2020 at 9:39
--- NOTE | 2020-06-16 08:58 | DI.RAD.S_ITS ---
PROCEDURE: XR THORACIC SPINE 3V INDICATIONS: Fall. Lower thoracic pain. TECHNIQUE: 3 views of the thoracic spine were acquired. COMPARISON: [facility], CR, XR LUMBAR SPINE 2-3V, 06/16/2020, 9:08. FINDINGS: Bones: No fractures or dislocations is seen in thoracic spine. Anterior wedge compression deformity of L1 vertebral body is noted. Mild rightward scoliosis of thoracic spine centered at T8 level is seen. No suspicious bony lesions. 12 pairs of ribs are noted, and appear intact where visualized. Soft tissues: No paravertebral stripe thickening. IMPRESSION: No acute thoracic spine compression fracture or spondylolisthesis. Mild scoliosis. Please correlate with lumbar spine findings. Dictated by: Maciej Bravo M.D. on 06/16/2020 at 9:33 Approved by: Maciej Bravo M.D. on 06/16/2020 at 9:35
--- NOTE | 2020-06-16 09:05 | PC.NURSE ---
Pt ambulated to restroom independently
[2020-06-16] MEDS: KETOROLAC 60 MG/2 ML VIAL IM (09:22)
--- NOTE | 2020-06-16 09:47 | DI.MRI.S_ITS ---
PROCEDURE: MR LUMBAR SPINE WO CON INDICATIONS: L1 compression fracture TECHNIQUE: Noncontrast sagittal T1 spin echo and T2 fast echo, sagittal STIR, axial T1 and T2 fast spin echo through the lumbar spine. In cases with scoliosis, additional coronal T2 fast spin echo may be performed. COMPARISON: None. FINDINGS: Image quality: Excellent. Alignment and Curvature: There is straightening of normal lumbar lordosis. Bone Marrow: Marrow edema involving upper portion of L1 vertebral body is seen with acute appearing anterior wedge compression deformity of L1 vertebral body and up to 23 percent loss of L1 vertebral body height anteriorly. Minimal retropulsion of the posterior wall at L1 level is seen without significant central canal stenosis. Spinal Cord: Conus medullaris terminates at the T12-L1 level. Visualized cord demonstrates normal signal and size. Paraspinous Soft Tissues: No paravertebral masses. L1-L2: Normal appearance. L2-L3: Normal appearance. L3-L4: Normal appearance. L4-L5: Normal appearance. L5-S1: Normal appearance. IMPRESSION: 1. Acute anterior wedge compression deformity of L1 with up to 23 percent loss of L1 vertebral body height anteriorly. Minimal retropulsion of posterior wall without significant central canal stenosis. 2. No other compression fracture or spondylolisthesis is seen in lumbar spine. Dictated by: Maciej Bravo M.D. on 06/16/2020 at 11:25 Approved by: Maciej Bravo M.D. on 06/16/2020 at 11:41
--- NOTE | 2020-06-16 10:58 | PC.NURSE ---
Pt is back from MRI
[2020-06-16 11:17] VITALS: BP 101/59; PULSE 101; RESP 14; O2SAT 100
[2020-06-16 13:10] VITALS: BP 128/72; PULSE 101; RESP 16; O2SAT 100
--- NOTE | 2020-06-16 14:45 | PC.NURSE ---
Pt is with PT and walking hallway with back brace on.
[2020-06-16] MEDS: OXYCODONE/ACETAMINOPHEN 5/325 TABLET 1 TAB PO (14:48)
--- NOTE | 2020-06-16 14:50 | PT.IIE ---
Surgical History (Last Reviewed 06/16/20 @ 09:03 by Inderjit Conner MD) History of third molar tooth extraction History of third molar tooth extraction Medical History (Last Updated 06/16/20 @ 15:02 by Inderjit Conner MD) Depression Palpitation Pancreatitis Physical Therapy Inpatient Evaluation/Re-Eval M1 PT/OT-IP Prior Functional Status Start: 06/16/20 15:38 Freq: Status: Discharge Protocol: Document 06/16/20 14:15 AB (Rec: 06/16/20 15:51 AB [email or web address]) Medical Review Prior Functional Status Medical History Reviewed Yes Communication able to make needs known Mobility and Gait pt stated that she is independent with all mobilities and ambulation without AD Social History Household Members family Living Arrangements House Number of Floors (Floors) One Floor Number of Stairs To Enter/Railing? no steps to enter Home Environment Standard Height Toilet,Walk in Shower Employment Status Unemployed Additional Social History Comment pt lives with her parents M2 PT-IP Current Condition Start: 06/16/20 15:38 Freq: Status: Discharge Protocol: Document 06/16/20 14:15 AB (Rec: 06/16/20 15:51 AB [id number]) Physical Therapy Current Condition Current Condition Evaluation Date 06/16/20 Treatment Diagnosis L1 compression fx; difficulty in walking Onset Date 06/16/20 Precautions Lumbar Precautions Log Roll,No Twisting,Limit Bending,Lifting Restriction of 10 lbs,Gait Belt above Incisional Area M3 PT-IP Subjective Start: 06/16/20 15:38 Freq: Status: Discharge Protocol: Document 06/16/20 14:15 AB (Rec: 06/16/20 15:51 AB [email or web address]) Subjective Physical Therapy Visit Type Type Initial Evaluation Visit Start Time 14:15 Visit Stop Time 14:50 Total Visit Minutes [address] MONITOR Visits 0 Physical Therapy Visit Comments Patient Comments pt is agreeable to do PT Therapy Pain Assessment Pain When Pain Assessed At Rest Pain Present Pain Present Pain Reported Location Low back pain Intensity 7 Scale Used Numeric (0 - 10) Pain Management Techniques Distraction,Modification of Treatment,Re-positioning, Timing of Activity with Medications M4 PT-IP Mobility and Gait Start: 06/16/20 15:38 Freq: Status: Discharge Protocol: Document 06/16/20 14:15 AB (Rec: 06/16/20 15:51 AB [email or web address]) PT-Bed Mobility Assessment Rolling Type of Rolling Log Rolling Level of Assist Standby Assistance Supine to Sit Supine to Sit Standby Assistance Sit to Supine Sit to Supine Standby Assistance PT-Transfer Assessment Sit to and From Stand Sit to and from Stand Standby Assistance Equipment Transfer Assistive Device None,Gait Belt Orthotic/Prosthetic Devices or Brace: Yes Comments Mobility Comments pt educated on back precautions. informed regarding TLSO order by the doctor and for PT to do fitting. pt agreed. pt completed log roll bed mobilty supine to sit SBA. pt was able to put non-skid socks on by herself. fitted pt with TLSO and pt without complaints . completed sit to stand SBA and ambulated ~ 50 ft without AD SBA. pt with gait deviation and sways to the R with increase LLE crossing over RLE but without LOB. pt ambulated back to her room and tolerating TLSO brace well. completed log roll sit to supine SBA. positioned pt in bed. call light and table placed within reach. informed doctor regarding pt's mobility and brace and stated that pt should have brace on when up and moving but can have it off when at rest. provided verbal order to PT. Gait Assessment Gait Gait Assistance Required: Standby Assistance Distance (Feet) 50 Able to Maintain Weight Bearing Status Yes During Gait Assistive Devices Assistive Device None,Gait Belt Orthotic/Prosthetic Devices or Brace: Yes Gait Deviations General Gait Pattern Ataxic Factors Limiting Gait Function Factors Limiting Gait Function Decreased Activity Tolerance, Limited Range of Motion,Pain, Poor Balance,Poor Safety Awareness PT-Balance Assessment Sitting Balance and Reactions Static Sitting Balance Ability Normal Dynamic Sitting Balance Ability Normal Standing Balance and Reactions Static Standing Balance Ability Good Dynamic Standing Balance Ability Good Device Used without AD M5 PT-IP Objective Assessments Start: 06/16/20 15:38 Freq: Status: Discharge Protocol: Document 06/16/20 14:15 AB (Rec: 06/16/20 15:51 AB [id number]) Orientation Orientation/Cognition Level of Alertness Alert Orientation Name,Place,Situation Safety Awareness Decreased Safety Awareness Gross Range of Motion Lower Extremity ROM Assessment Within Functional Limits Strength Lower Extremity Strength Hip 4-/5 Knee 4-/5 Sensation Assessment Sensation Gross Sensation WNL Muscle Tone Muscle Tone WNL Yes M6 PT-IP Treatment Start: 06/16/20 15:38 Freq: Status: Discharge Protocol: Document 06/16/20 14:15 AB (Rec: 06/16/20 15:51 AB [id number]) Physical Therapy Treatment Education Education Provided Precautions,Safety Brace Education [place],Patient Other Treatments Other Treatment Performed educated pt on how to manage TLSO brace and understood. M7 PT-IP Assessment and Plan Start: 06/16/20 15:38 Freq: Status: Discharge Protocol: Document 06/16/20 14:15 AB (Rec: 06/16/20 15:51 AB [email or web address]) PT Summary Assessment and Plan Potential Rehabilitation Potential Fair Status of Condition at Evaluation Evolving Summary Impairments Pain,ROM,Strength,Balance, Cognition,Bed Mobility, Transfers,Gait,Activity Tolerance Assessment Summary completed TLSO brace fitting and educated pt on management of brace. pt requires SBA with mobility and plans to go home with family to assist her but her parents work and she is usually home alone. educated pt on safety and back precautions and pt understood and agreed. Goals Bed Mobility Goal Independent Transfer Goal Independent Gait Goal Independent Gait Distance 150 Days to Meet Goals 3 Frequency of Treatment Frequency Of Treatment Once a Day Treatment Plan Physical Therapy Treatment Plan Bed Mobility Training,Transfer Training,Gait Training, Therapeutic Exercise,Balance Retraining,Post Op Education, Discharge Planning,Hot or Cold Pack,Neuromuscular Re-ed, Coordination Retraining,Manual Therapy Recommendations To Nursing Amount of Assist Needed Standby Assistance Discharge Recommendations PT Discharge Recommendations Home with Assistance Transportation Needs at Discharge Private Vehicle
[2020-06-16 15:21] VITALS: BP 110/66; PULSE 88; RESP 14; O2SAT 99
[2020-06-16 15:41] VITALS: BP 107/67; PULSE 113; RESP 16
== END 2020-06-16 15:43 | disposition home or self-care (01) ==
PROVIDERS: Emergency Provider Emergency Medicine
DX: S32.010A Wedge compression fracture of first lumbar vertebra, initial encounter for closed fracture (principal); W00.0XXA Fall on same level due to ice and snow, initial encounter; K85.90 Acute pancreatitis without necrosis or infection, unspecified
CPT/HCPCS: 72072; 72100; 72148; 81003; 81025; 96372; 97161; 99284; J1885